=== PATIENT | male | born 1955 | race Caucasian/White ===

== ENCOUNTER 2017-07-09 10:03 | Inpatient (IN) | payer BC ==
[~2017-07-09] VITALS: Ht 177.8 cm; Wt 88.7 kg
[~2017-07-09 10:03] MED LIST: ADVIN25/60 INH; ALBU1AER9 INH; ASPI81TA28 PO; MONT1TAB3 PO; PRLSR20 PO; SIMV40TA2 PO
--- NOTE | 2017-07-09 10:44 | DIAGNOSTIC IMAGING REPORT ---
CHEST ONE VIEW PORTABLE HISTORY: 62 years-old Male CHEST PAIN acute atypical chest pain with near syncopal event COMPARISON: Chest radiograph 12/09/2010 TECHNIQUE: Portable AP view of the chest FINDINGS: Cardiomediastinal and hilar silhouettes are within normal limits. There is no pneumothorax, pleural effusion, focal airspace consolidation or overt pulmonary edema. Bones of the chest appear grossly intact. IMPRESSION: No acute cardiopulmonary process. The above report was generated using voice recognition software. It may contain grammatical, syntax or spelling errors. Electronically signed by: Casey Wood M.D. 07/09/2017 10:43 AM Dictated Date/Time: 07/09/2017 10:42 AM
[2017-07-09] MEDS ORDERED: PANT40TA2 PO (10:51)
--- NOTE | 2017-07-09 10:54 | EMERGENCY ROOM VISIT NOTE ---
History Report prepared by Ren: Osbaldo Adams Under the Supervision of: Dr. Edilson Ellsworth M.D. First contact with patient: 10:11 Chief Complaint: CARDIAC ASSESSMENT Stated Complaint: NEAR SYNCOPE, CHEST PRESSURE, CLAMMY, SWEATING Nursing Triage Summary: Pt states approx 0545 he was sitting at his desk and felt clammy and faint, took 2 aspirin (low dose). Outpatient did an EKG and they said the EKG looked good but they want blood work done. Took [address]. History of Present Illness The patient is a 62 year old male who presents to the Emergency Room with complaints of a near syncopal episode that occurred very suddenly earlier this morning. While he was sitting at his desk at work, he began to feel very lightheaded. His coworker noticed that he looked very pale as well. The patient began to experience diaphoresis, palpitations, and a tightness around his chest that he describes as "someone squeezing" him. He received an ECG at an outpatient clinic and was referred to the ER for further management. Pt denies LOC, headache, fevers, chills, diaphoresis, visual changes, neck pain, tearing pain radiating to the back, uncontrolled hypertension, breathing difficulties, leg swelling, coagulation abnormalities, prolonged travel, recent surgery or immobilization, nausea, vomiting, abdominal pain, melena, hematochezia, urinary symptoms, numbness, weakness, lymphadenopathy, rash, or other complaints. He has a past medical history of a DVT. He notes that he had a cardiac catheterization 6 years ago. Source of History: patient Onset: earlier this morning Position: other (Global) Symptom Intensity: 1 episode Quality: other (Near syncopal episode) Timing: resolved Associated Symptoms: + diaphoresis, + chest pain (pressure) Note: He was experiencing lightheadedness and palpitations. Review of Systems See HPI for pertinent positives and negatives. A total of ten systems were reviewed and were otherwise negative. Past Medical & Surgical Medical Problems: (1) Asthma (2) DVT (deep venous thrombosis) (3) Kidney stones (4) NSTEMI (non-ST elevated myocardial infarction) Surgical Problems: (1) History of knee replacement (2) Prostate cancer Family History He denies any family history of cardiac disease. Social History Smoking Status: Former Smoker Alcohol Use: occasionally Drug Use: none Marital Status: Occupation Status: employed Current/Historical Medications Scheduled Aspirin (Aspirin Ec), 81 MG PO DAILY Fluticasone Prop/Salmeterol (Advair Diskus 250/50 60 Dose), 1 PUFF INH DAILY Pantoprazole (Pantoprazole Sodium), 1 TAB PO DAILY Simvastatin (Zocor), 40 MG PO HS Allergies Coded Allergies: Iodine (Verified Allergy, Unknown, 07/09/17) Sulfa Drugs (Verified Allergy, Unknown, 07/09/17) Physical Exam Vital Signs Date Time Temp Pulse Resp B/P (MAP) Pulse Ox O2 Delivery O2 Flow Rate FiO2 07/09/17 13:32 36.9 75 18 126/84 (98) 96 Room Air 07/09/17 13:00 73 16 123/87 97 07/09/17 12:47 71 137/79 07/09/17 12:04 82 16 113/70 07/09/17 11:55 94 Room Air 07/09/17 11:08 88 07/09/17 11:06 80 18 135/85 94 Room Air 81 129/82 83 138/93 07/09/17 11:00 95 07/09/17 10:10 95 Room Air 07/09/17 10:06 36.6 92 16 117/84 95 Room Air Physical Exam GENERAL: Awake, alert, well-appearing, in no distress HENT: Normocephalic, atraumatic. Oropharynx unremarkable. EYES: Normal conjunctiva. Sclera non-icteric. NECK: Supple. No nuchal rigidity. FROM. No JVD. RESPIRATORY: Clear to auscultation. CARDIAC: Regular rate, normal rhythm. Extremities warm and well perfused. Pulses equal. ABDOMEN: Soft, non-distended. No tenderness to palpation. No rebound or guarding. No masses. RECTAL: Deferred. MUSCULOSKELETAL: Chest examination reveals no tenderness. The back is symmetrical on inspection without obvious abnormality. There is no CVA tenderness to palpation. No joint edema. LOWER EXTREMITIES: Calves are equal size bilaterally and non-tender. No edema. No discoloration. NEURO: Normal sensorium. No sensory or motor deficits noted. SKIN: No rash or jaundice noted. Medical Decision & Procedures ER Provider Diagnostic Interpretation: Radiology results as stated below per my review and radiologist interpretation: CHEST ONE VIEW PORTABLE HISTORY: 62 years-old Male CHEST PAIN acute atypical chest pain with near syncopal event COMPARISON: Chest radiograph 12/09/2010 TECHNIQUE: Portable AP view of the chest FINDINGS: Cardiomediastinal and hilar silhouettes are within normal limits. There is no pneumothorax, pleural effusion, focal airspace consolidation or overt pulmonary edema. Bones of the chest appear grossly intact. IMPRESSION: No acute cardiopulmonary process. The above report was generated using voice recognition software. It may contain grammatical, syntax or spelling errors. Electronically signed by: Casey Wood M.D. 07/09/2017 10:43 AM Dictated Date/Time: 07/09/2017 10:42 AM Laboratory Results 07/09/17 10:20 Red Blood Count 5.25, Mean Corpuscular Volume 89.1, Mean Corpuscular Hemoglobin 31.8, Mean Corpuscular Hemoglobin Concent 35.7, Mean Platelet Volume 10.4, Neutrophils (%) (Auto) 60.8, Lymphocytes (%) (Auto) 28.1, Monocytes (%) (Auto) 9.2, Eosinophils (%) (Auto) 1.1, Basophils (%) (Auto) 0.5, Neutrophils # (Auto) 4.44, Lymphocytes # (Auto) 2.05, Monocytes # (Auto) 0.67, Eosinophils # (Auto) 0.08, Basophils # (Auto) 0.04 07/09/17 10:20 Test 07/09/17 10:18 07/09/17 10:20 07/09/17 10:33 07/09/17 13:14 Urine Color YELLOW Urine Appearance CLEAR (CLEAR) Urine pH 6.0 (4.5-7.5) Urine Specific [place] 1.026 (1.000-1.030) Urine Protein NEG (NEG) Urine Glucose (UA) NEG (NEG) Urine Ketones NEG (NEG) Urine Occult Blood NEG (NEG) Urine Nitrite NEG (NEG) Urine Bilirubin NEG (NEG) Urine Urobilinogen NEG (NEG) Urine Leukocyte Esterase NEG (NEG) White Blood Count 7.30 K/uL (4.8-10.8) Red Blood Count 5.25 M/uL (4.7-6.1) Hemoglobin 16.7 g/dL (14.0-18.0) Hematocrit 46.8 % (42-52) Mean Corpuscular Volume 89.1 fL (80-100) Mean Corpuscular Hemoglobin 31.8 pg (25-34) Mean Corpuscular Hemoglobin Concent 35.7 g/dl (32-36) Platelet Count 176 K/uL (130-400) Mean Platelet Volume 10.4 fL (7.4-10.4) Neutrophils (%) (Auto) 60.8 % Lymphocytes (%) (Auto) 28.1 % Monocytes (%) (Auto) 9.2 % Eosinophils (%) (Auto) 1.1 % Basophils (%) (Auto) 0.5 % Neutrophils # (Auto) 4.44 K/uL (1.4-6.5) Lymphocytes # (Auto) 2.05 K/uL (1.2-3.4) Monocytes # (Auto) 0.67 K/uL (0.11-0.59) Eosinophils # (Auto) 0.08 K/uL (0-0.5) Basophils # (Auto) 0.04 K/uL (0-0.2) RDW Standard Deviation 42.4 fL (36.4-46.3) RDW Coefficient of Variation 13.1 % (11.5-14.5) Immature Granulocyte % (Auto) 0.3 % Immature Granulocyte # (Auto) 0.02 K/uL (0.00-0.02) Prothrombin Time 10.6 SECONDS (9.0-12.0) Prothromb Time International Ratio 1.0 (0.9-1.1) Activated Partial Thromboplast Time 26.7 SECONDS (21.0-31.0) Partial Thromboplastin Ratio 1.0 Anion Gap 6.0 mmol/L (3-11) Est Creatinine Clear Calc Drug Dose 92.4 ml/min Estimated GFR () 101.6 Estimated GFR (Non- 87.7 BUN/Creatinine Ratio 17.2 (10-20) Calcium Level 8.5 mg/dl (8.5-10.1) Total Bilirubin 0.4 mg/dl (0.2-1) Direct Bilirubin < 0.1 mg/dl (0-0.2) Aspartate Amino Transf (AST/SGOT) 22 U/L (15-37) Alanine Aminotransferase (ALT/SGPT) 27 U/L (12-78) Alkaline Phosphatase 94 U/L (45-117) Total Creatine Kinase 95 U/L (39-308) Creatine Kinase MB 1.5 ng/ml (0.5-3.6) Creatine Kinase MB Ratio 1.6 (0-3.0) Total Protein 7.1 gm/dl (6.4-8.2) Albumin 3.3 gm/dl (3.4-5.0) Lipase 169 U/L (73-393) Lyme Disease IgG Antibody NEG (NEG) Lyme Disease IgM Antibody NEG (NEG) Bedside D-Dimer 342 ng/mlFEU (0-450) Laboratory results reviewed by me Medications Administered Medications (Trade) Dose Ordered Sig/Martin Route Start Time Stop Time Status Last Admin Dose Admin Heparin Sodium/ Dextrose 1 ea NOW STAT N/A 07/09/17 11:36 07/09/17 11:38 DC 07/09/17 12:01 1 EA Metoprolol Tartrate (Lopressor Iv) 2.5 mg NOW STAT IV 07/09/17 11:38 07/09/17 11:40 DC 07/09/17 12:47 2.5 MG Heparin Sodium/ Dextrose (Heparin 25,000 Unit/500ml D5W) 25,000 unit STK-MED ONCE .ROUTE 07/09/17 11:51 07/09/17 11:52 DC 07/09/17 11:59 25,000 UNIT Heparin Sodium (Porcine) (Heparin Sq 5000 Unit/0.5ml) 10,000 unit STK-MED ONCE .ROUTE 07/09/17 11:51 07/09/17 11:52 DC 07/09/17 11:57 5,000 UNIT ECG Indication: chest pain Rate (beats per minute): 91 Rhythm: normal sinus Findings: Q waves (Inferior), no acute ischemic change, no ectopy ED Course 1011: The patient was evaluated in room A3. A complete history and physical exam was performed. 1132: I spoke with Dr. Ba of Cardiology at this time. He recommended starting the patient on Heparin, Beta Blockers, and Nitrates. He would like the patient to be evaluated further as an inpatient. He will speak with Dr. Maier about a hospital catheterization procedure. 1136: Ordered Heparin Sodium/Dextrose 1 ea N/A 1140: Upon reexamination, the patient was resting. I discussed the test results and treatment plan with him. I [place] Rob[place] [facility] [place] We discussed the patient's case. The patient will be evaluated by him for further management. 1145: Ordered Nitroglycerin 0.5 inch EXT Medical Decision Triage Nursing notes reviewed. The patient's presentation and history were concerning for near syncope and chest pressure. Etiologies such as vasovagal event, cardiac ischemia, pulmonary embolism, pneumonia, pneumothorax, musculoskeletal, infections, gastrointestinal, aortic dissection,as well as others were entertained. The patient was evaluated. Clinically he was doing well. He had an unremarkable ECG. Blood work is obtained. D-dimer was negative. Chest x-ray as above. Blood work was unremarkable except the patient's troponin was elevated. This is concerning for non-ST elevation MA. I did consult with cardiology. The patient was started on heparin, Lopressor, and Nitropaste. Patient was educated. Internal medicine was consulted. A bedside echo was ordered and was performed in the ED. The patient was admitted for further treatment. Medication Reconcilliation Current Medication List: was personally reviewed by me Blood Pressure Screening Patient's blood pressure: Normal blood pressure Blood pressure disposition: Did not require urgent referral Consults Time Called: 1130 Consulting Physician: Dr. Ba - Cardiology Returned Call: 1132 We discussed the patient's case. He recommended starting the patient on Heparin , Beta Blockers, and Nitrates. He would like him to be evaluated further as an inpatient. He will speak with Dr. Maier about a hospital catheterization. Additional Consults: Time Called: 1138 Consulted Physician: Dr. Robbins - [facility] Returned Call: 1140 Additional Comments: Discussed the patient's case. The patient will be evaluated for further treatment and disposition. Impression Primary Impression: NSTEMI (non-ST elevated myocardial infarction) Additional Impressions: Near syncope Elevated troponin Critical Care I have personally spent greater than 30 minutes of critical care time in the direct management of this patient. This includes bedside care, interpretation of diagnostic studies, and testing, discussion with consultants, patient, and family members, and other required patient management activities. This 30 minutes is in excess of all separately billable procedures. Scribe Attestation The scribe's documentation has been prepared under my direction and personally reviewed by me in its entirety. I confirm that the note above accurately reflects all work, treatment, procedures, and medical decision making performed by me. Departure Information Dispostion Being Evaluated By Hospitalist Referrals No Doctor, Assigned (PCP) Patient Instructions My [facility] Problem Qualifiers
[2017-07-09 10:58] LABS: BASO % 0.5 %; BASO ABS # 0.04 K/uL (0-0.2); COMPLETE YES; EOS % 1.1 %; HEMATOCRIT 46.8 % (42-52); IG% 0.3 %; LYMPH % 28.1 %; LYMPH ABS # 2.05 K/uL (1.2-3.4); MEAN CELL VOLUME 89.1 fL (80-100); MEAN CORPUSCULAR HEMOGLOBIN 31.8 pg (25-34); MEAN CORPUSCULAR HGB CONC 35.7 g/dl (32-36); MEAN PLATELET VOLUME 10.4 fL (7.4-10.4); MONO % 9.2 %; NEUT % 60.8 %; PLATELET COUNT 176 K/uL (130-400); RED BLOOD COUNT 5.25 M/uL (4.7-6.1)
[2017-07-09 11:05] LABS: URINE APPEARANCE CLEAR (CLEAR); URINE BILIRUBIN NEG (NEG); URINE COLOR YELLOW; URINE NITRITE NEG (NEG); URINE SPECIFIC GRAVITY 1.026 (1.000-1.030); UROBILINOGEN NEG (NEG); ZZUR CULT IF INDIC CLEAN CATCH NO
[2017-07-09 11:09] LABS: ALT/SGPT 27 U/L (12-78); AST/SGOT 22 U/L (15-37); BLOOD UREA NITROGEN 16 mg/dl (7-18); BUN/CREATININE RATIO 17.2 (10-20); CALCIUM 8.5 mg/dl (8.5-10.1); CARBON DIOXIDE 24 mmol/L (21-32); CHLORIDE 110 mmol/L (98-107); CREATININE 0.93 mg/dl (0.60-1.40); GLUCOSE 103 mg/dl (70-99); SODIUM 140 mmol/L (136-145)
[2017-07-09 11:11] LABS: PROTHROMBIN TIME (PATIENT) 10.6 SECONDS (9.0-12.0)
[2017-07-09 11:12] LABS: MANUAL MICROSCOPIC REQUIRED? NO; REVIEW REQ? NO
[2017-07-09 11:17] LABS: ALKALINE PHOSPHATASE 94 U/L (45-117); CKMB/CK RATIO 1.6 (0-3.0)
[2017-07-09] MEDS ORDERED: METOPROLOL TARTRATE 1 MG/ML VIAL IV STA (11:38)
[2017-07-09] MEDS ORDERED: ACETAMINOPHEN 325 MG TAB PO PRN (11:45)
[2017-07-09] MEDS ORDERED: ALUMINUM/MAGNESIUM/SIMETH (MAALOX MAX) 30 ML UDC PO PRN (11:45)
[2017-07-09] MEDS ORDERED: NITROGLYCERIN OINT 2% 1GM PACKET EXT ONE (11:45)
[2017-07-09] MEDS ORDERED: NITROGLYCERIN 0.4 MG SL PER TAB CHARGE SL PRN (11:45)
[2017-07-09] MEDS ORDERED: ONDANSETRON INJ 2 MG/ML 2 ML VIAL IV PRN (11:45)
[2017-07-09] MEDS ORDERED: NITROGLYCERIN OINT 2% 1GM PACKET EXT SCH (11:45)
[2017-07-09] MEDS ORDERED: LORAZEPAM 2 MG/ML 1 ML VIAL IV PRN ×2 (11:45)
[2017-07-09] MEDS ORDERED: LORAZEPAM 0.5 MG TAB PO PRN (11:45)
[2017-07-09] MEDS ORDERED: MoRPHine SULFATE 4 MG/ML 1 ML CARP\\VIAL IV PRN (11:45)
[2017-07-09] MEDS ORDERED: POLYETHYLENE (MIRALAX) 17 GM PACK PO PRN (11:45)
[2017-07-09] MEDS ORDERED: MoRPHine SULFATE 2 MG/ML CARP IV PRN (11:45)
[2017-07-09] MEDS ORDERED: HEPARIN SOD 5000 UNIT/0.5 ML CARP ONE (11:51)
[2017-07-09] MEDS ORDERED: HEPARIN 25000 UNIT/500 ML D5W ONE (11:51)
[2017-07-09 11:55] VITALS: O2SAT 94; Ht 177.8 cm; Wt 88.7 kg
[2017-07-09 11:59] LABS: LYME DISEASE AB IGG NEG (NEG); LYME DISEASE AB IGM NEG (NEG)
[2017-07-09] MEDS ORDERED: NURSING VERBAL MED ORDER ONE (12:00)
[2017-07-09] MEDS ORDERED: HEPARIN 25000 UNIT/ D5W 500 ML (PHARMACY PREPARED) IV PRN ×2 (12:30)
[2017-07-09 13:00] VITALS: O2SAT 97
--- NOTE | 2017-07-09 13:23 | History and Physical ---
History & Physical Date & Time of Service: Jul 09, 2017 at 13:15 Chief Complaint: Near Syncope, Chest Pressure, Clammy, Sweating Primary Care Physician: No Doctor, Assigned History of Present Illness this pt was sitting at his office desk this am when he felt ill, he described feeling like he was going to pass out, getting cold and clamey, he felt strong rapid palpitations, his co worker said he looked pale and weak. he has a history of a heart cath after an abnormal stress test in 2009. He currently is without symptoms and has no acute ecg changes. He notes no recent decrease in exertion but does state he is bothered by cold air due to his asthma Past Medical/Surgical History Medical Problems: (1) Asthma Status: Chronic (2) DVT (deep venous thrombosis) Status: Resolved (3) Kidney stones Status: Resolved Surgical Problems: (1) History of knee replacement Status: Resolved Social History Smoking Status: Former Smoker Drug Use: none Marital Status: Housing status: lives alone Occupational Status: employed Immunizations History of Influenza Vaccine: No History of Tetanus Vaccine?: Yes Tetanus Immunization Date: Mar 07, 2006 History of Pneumococcal: Yes Pneumococcal Date: Jun 07, 2006 History of Hepatitis B Vaccine: Unknown Multi-Drug Resistant Organisms History of MDRO: No Allergies Coded Allergies: Iodine (Verified Allergy, Unknown, 07/09/17) Sulfa Drugs (Verified Allergy, Unknown, 07/09/17) Home Medications Scheduled Aspirin (Aspirin Ec), 81 MG PO DAILY Fluticasone Prop/Salmeterol (Advair Diskus 250/50 60 Dose), 1 PUFF INH DAILY Pantoprazole (Pantoprazole Sodium), 1 TAB PO DAILY Simvastatin (Zocor), 40 MG PO HS Review of Systems Constitutional: + chills, + sweats, No fever Respiratory: No cough, No sputum, No wheezing Cardiovascular: + palpitations, + problem reported (felt presyncopal), No chest pain, No orthopnea, No PND, No edema, No claudication Abdomen: No pain, No nausea, No diarrhea Musculoskeletal: No joint pain, No muscle pain, No swelling Neurologic: No memory loss, No paralysis Psychiatric: No depression symptoms, No anhedonism, No anxiety Endocrine: No fatigue, No excessive thirst Integumentary: No rash, No itch Physical Exam Vital Signs Date Time Temp Pulse Resp B/P (MAP) Pulse Ox O2 Delivery O2 Flow Rate FiO2 07/09/17 13:00 73 16 123/87 97 07/09/17 12:47 71 137/79 07/09/17 12:04 82 16 113/70 07/09/17 11:55 94 Room Air 07/09/17 11:08 88 07/09/17 11:06 80 18 135/85 94 Room Air 81 129/82 83 138/93 07/09/17 11:00 95 07/09/17 10:10 95 Room Air 07/09/17 10:06 36.6 92 16 117/84 95 Room Air General Appearance: WD/WN, no apparent distress Head: normocephalic, atraumatic Eyes: PERRL, EOMI Neck: supple, no adenopathy, no JVD Respiratory/Chest: chest non-tender, lungs clear, normal breath sounds Cardiovascular: regular rate, rhythm, no murmur, normal peripheral pulses Abdomen/GI: normal bowel sounds, non tender, soft Back: no CVA tenderness, no muscle spasm Extremities/Musculoskelatal: no pedal edema, normal range of motion Neurologic/Psych: no motor/sensory deficits, oriented x 3 Skin: normal color, warm/dry Diagnostics Laboratory Results Results Past 24 Hours Test 07/09/17 10:18 07/09/17 10:20 07/09/17 10:33 Range/Units Urine Color YELLOW Urine Appearance CLEAR CLEAR Urine pH 6.0 4.5-7.5 Urine Specific [place] 1.026 1.000-1.030 Urine Protein NEG NEG Urine Glucose (UA) NEG NEG Urine Ketones NEG NEG Urine Occult Blood NEG NEG Urine Nitrite NEG NEG Urine Bilirubin NEG NEG Urine Urobilinogen NEG NEG Urine Leukocyte Esterase NEG NEG White Blood Count 7.30 4.8-10.8 K/uL Red Blood Count 5.25 4.7-6.1 M/uL Hemoglobin 16.7 14.0-18.0 g/dL Hematocrit 46.8 42-52 % Mean Corpuscular Volume 89.1 80-100 fL Mean Corpuscular Hemoglobin 31.8 25-34 pg Mean Corpuscular Hemoglobin Concent 35.7 32-36 g/dl Platelet Count 176 130-400 K/uL Mean Platelet Volume 10.4 7.4-10.4 fL Neutrophils (%) (Auto) 60.8 % Lymphocytes (%) (Auto) 28.1 % Monocytes (%) (Auto) 9.2 % Eosinophils (%) (Auto) 1.1 % Basophils (%) (Auto) 0.5 % Neutrophils # (Auto) 4.44 1.4-6.5 K/uL Lymphocytes # (Auto) 2.05 1.2-3.4 K/uL Monocytes # (Auto) 0.67 0.11-0.59 K/uL Eosinophils # (Auto) 0.08 0-0.5 K/uL Basophils # (Auto) 0.04 0-0.2 K/uL RDW Standard Deviation 42.4 36.4-46.3 fL RDW Coefficient of Variation 13.1 11.5-14.5 % Immature Granulocyte % (Auto) 0.3 % Immature Granulocyte # (Auto) 0.02 0.00-0.02 K/uL Prothrombin Time 10.6 9.0-12.0 SECONDS Prothromb Time International Ratio 1.0 0.9-1.1 Activated Partial Thromboplast Time 26.7 21.0-31.0 SECONDS Partial Thromboplastin Ratio 1.0 Sodium Level 140 136-145 mmol/L Potassium Level 4.0 3.5-5.1 mmol/L Chloride Level 110 98-107 mmol/L Carbon Dioxide Level 24 21-32 mmol/L Anion Gap 6.0 3-11 mmol/L Blood Urea Nitrogen 16 7-18 mg/dl Creatinine 0.93 0.60-1.40 mg/dl Est Creatinine Clear Calc Drug Dose 92.4 ml/min Estimated GFR () 101.6 Estimated GFR (Non- 87.7 BUN/Creatinine Ratio 17.2 10-20 Random Glucose 103 70-99 mg/dl Calcium Level 8.5 8.5-10.1 mg/dl Total Bilirubin 0.4 0.2-1 mg/dl Direct Bilirubin < 0.1 0-0.2 mg/dl Aspartate Amino Transf (AST/SGOT) 22 15-37 U/L Alanine Aminotransferase (ALT/SGPT) 27 12-78 U/L Alkaline Phosphatase 94 45-117 U/L Total Creatine Kinase 95 39-308 U/L Creatine Kinase MB 1.5 0.5-3.6 ng/ml Creatine Kinase MB Ratio 1.6 0-3.0 Troponin I 0.079 0-0.045 ng/ml Total Protein 7.1 6.4-8.2 gm/dl Albumin 3.3 3.4-5.0 gm/dl Lipase 169 73-393 U/L Lyme Disease IgG Antibody NEG NEG Lyme Disease IgM Antibody NEG NEG Bedside D-Dimer 342 0-450 ng/mlFEU CXR normal Normal EKG Impression Assessment and Plan 62 M with presyncopal symptoms at rest, palpitations and elevated troponin will repeat troponin and have cardiology consult, was started on heparin by the ER team, given one dose of metoprolol 2.5, will be seen by cardiology and determine if to stress today or complete serial enzymes as long as repeat troponin on admission is not significantly changed continue protonix pt does not typically use inhaler Advanced Directives Existing Living Will: No Existing Power of Water Chaser: No VTE Prophylaxis VTE Risk Assessment Done? Y/N: Yes Risk Level: Moderate Given or contraindicated: Other Anticoagulation
[2017-07-09 13:32] VITALS: BP 126/84; PULSE 75; TEMP 36.9; O2SAT 96
--- NOTE | 2017-07-09 14:01 | ECHOCARDIOGRAM REPORT ---
*NOTICE TO RECEIVING LIBERTARIAN AGENCY This information is strictly Confidential and protected under [place] law. [place] law prohibits you from making any further disclosure of this information unless further disclosure is expressly permitted by the written consent of the person to whom it pertains or is authorized by law. A general authorization for the release of medical or other information is not sufficient for this purpose. Hospital accepts no responsibility if the information is made available to any other person, INCLUDING THE PATIENT. Interpretation Summary * Conclusions -- * Left ventricular systolic function is normal. * No regional wall motion abnormalities noted. * Ejection Fraction = 60-65%. * There is mild concentric left ventricular hypertrophy. * Grade I diastolic dysfunction, (abnormal relaxation pattern). * There is mild mitral regurgitation. Procedure Details * A complete two-dimensional transthoracic echocardiogram was performed (2D, M-mode, Doppler and color flow Doppler). * A contrast injection of Definity was performed to improve assessment of LV function. * Contrast was injected into an intravenous site in the right arm. * One vial of Definity ultrasound contrast was diluted in normal saline to a total volume of 10 ml. A total of '2' ml of solution was administered during imaging. * Lot # [id number] of Definity utilized for procedure. * Expiration date AUG 09. * The attending nurse who injected the contrast agent was TANIA GE RN. Left Ventricle * The left ventricle is normal in size. * There is mild concentric left ventricular hypertrophy. * Left ventricular systolic function is normal. * Ejection Fraction = 60-65%. * No regional wall motion abnormalities noted. Right Ventricle * The right ventricle is grossly normal size. * The right ventricular systolic function is normal as assessed by tricuspid annular plane systolic excursion (TAPSE) (normal >1.5 cm). Atria * Borderline left atrial enlargement. * Right atrial size is normal. * No ASD detected; PFO is not assessed. Mitral Valve * The mitral valve is grossly normal. * There is no mitral valve stenosis. * There is mild mitral regurgitation. Tricuspid Valve * The tricuspid valve is not well visualized, but is grossly normal. * There is no tricuspid stenosis. * There is trace tricuspid regurgitation. Aortic Valve * The aortic valve is normal in structure and function. * Aortic stenosis is absent. * No aortic regurgitation is present. Pulmonic Valve * The pulmonary valve is not well seen, but the Doppler examination is normal without significant regurgitation or stenosis. Great Vessels * The aortic root is normal size. * The pulmonary is not well visualized. Pericardium/Pleural * There is no pericardial effusion. Great Vessels * Normal inferior vena cava size and collapsability with sniff indicates a normal right atrial pressure of 3 mmHg Left Ventricular Diastolic Function * Grade I diastolic dysfunction, (abnormal relaxation pattern). MMode 2D Measurements and Calculations IVSd 1.1 cm IVSs 1.7 cm LVIDd 4.3 cm LVIDs 3.5 cm LVPWd 1.2 cm LVPWs 1.3 cm IVS/LVPW 0.93 FS 18.2 % EDV(Teich) 83.2 ml ESV(Teich) 51.6 ml EF(Teich) 38.0 % EDV(cubed) 79.7 ml ESV(cubed) 43.7 ml EF(cubed) 45.2 % % IVS thick 56.3 % % LVPW thick 13.0 % LV mass(C)d 173.7 grams LV mass(C)dI 84.1 grams/m\S\2 LV mass(C)s 203.2 grams LV mass(C)sI 98.4 grams/m\S\2 SV(Teich) 31.6 ml SI(Teich) 15.3 ml/m\S\2 SV(cubed) 36.0 ml SI(cubed) 17.5 ml/m\S\2 Ao root diam 3.5 cm Ao root area 9.8 cm\S\2 LA dimension 3.9 cm LA/Ao 1.1 LVOT diam 2.1 cm LVOT area 3.5 cm\S\2 LVAd ap4 29.6 cm\S\2 LVLd ap4 7.1 cm EDV(MOD-sp4) 98.9 ml EDV(sp4-el) 105.5 ml LVAs ap4 19.9 cm\S\2 LVLs ap4 6.4 cm ESV(MOD-sp4) 53.0 ml ESV(sp4-el) 52.7 ml EF(MOD-sp4) 46.4 % EF(sp4-el) 50.1 % LVAd ap2 31.3 cm\S\2 LVLd ap2 8.0 cm EDV(MOD-sp2) 99.0 ml EDV(sp2-el) 103.8 ml LVAs ap2 20.2 cm\S\2 LVLs ap2 6.6 cm ESV(MOD-sp2) 50.4 ml ESV(sp2-el) 52.2 ml EF(MOD-sp2) 49.1 % EF(sp2-el) 49.8 % LVLd %diff 11.8 % EDV(MOD-bp) 103.1 ml LVLs %diff 4.0 % ESV(MOD-bp) 51.9 ml EF(MOD-bp) 49.7 % SV(MOD-sp4) 45.9 ml SI(MOD-sp4) 22.2 ml/m\S\2 SV(MOD-sp2) 48.6 ml SI(MOD-sp2) 23.5 ml/m\S\2 SV(MOD-bp) 51.2 ml SI(MOD-bp) 24.8 ml/m\S\2 SV(sp4-el) 52.9 ml SI(sp4-el) 25.6 ml/m\S\2 SV(sp2-el) 51.7 ml SI(sp2-el) 25.0 ml/m\S\2 Doppler Measurements and Calculations MV E max brandon 56.1 cm/sec MV A max brandon 79.3 cm/sec MV E/A 0.71 MV P1/2t max brandon 60.4 cm/sec MV P1/2t 76.8 msec MVA(P1/2t) 2.9 cm\S\2 MV dec slope 230.4 cm/sec\S\2 MV dec time 0.19 sec Ao V2 max 101.4 cm/sec Ao max PG 4.1 mmHg Ao max PG (full) 0.67 mmHg ALEJANDRO(V,A) 3.2 cm\S\2 ALEJANDRO(V,D) 3.2 cm\S\2 LV V1 max PG 3.4 mmHg LV V1 max 92.7 cm/sec
--- NOTE | 2017-07-09 15:46 | Cardiology Consultation ---
Cardiology Consultation Date of Consultation: Jul 09, 2017. Attending Physician: Dr. Robbins Reason for Consultation: Near-syncope, chest tightness, elevated troponin Pt evaluation today including: conversation w/ patient, physical exam, chart review, lab review History of Present Illness 62 yo M presented to ED this morning after a short episode of near syncope. He states that after arriving at work while sitting in chair drinking coffee, he felt a sudden onset of feeling lightheaded, as if he were going to pass out. He did not lose consciousness. This episode lasted 30-40 seconds. He also notes feeling clammy and diaphoretic and some squeezing of his anterior chest wall of his ribs, bilaterally, as if someone were giving him a tight hug. These symptoms lasted 3-4 minutes total. He used some breathing exercises, rested his head on his desk, and gradually felt himself again. He reports he takes a daily baby aspirin, and took 2 pills 1-2 hours after onset of symptoms. He presented himself to a walk-in clinic, where an EKG was performed. Patient states the EKG looked "okay" but he was still advised to present to the ED. Since the initial 3 -4 min episode he has been asymptomatic. He reports no PND, orthopnea, peripheral edema, dyspnea. He denies any recent illness, head cold, or change to bowel habits. He does report 2 previous similar presentations. 6 years ago had near-syncope, stress echo performed which he tolerated well but had EKG changes that required cardiac cath. Cath at [place] showed minimal blockage 12 years ago, had episode of chest tightness, came to ED, was worked up and was told it was related to stress. 20 years ago had 1st episode of sudden syncope, remembers being in ICU and having thorough workup but does not recall if anything abnormal was found Past Medical/Surgical History Syncopal episode: 20 years ago, was walking down stairs, and suddenly passed out ; had thorough cardiac workup at that time, does not recall what was found at that time. Prostate Cancer: had surgery to remove, now in remission Asthma: has difficulty in cold weather. Meant to be taking advair, singulair, and "another" inhaler but does not regularly take them and really only needs them when very cold out. HLD: states this is well controlled with tablet. 15 pack year smoking hx Hypotension Knee surgery: did well but developed DVT in leg, was placed on coumadin and lovenox for a time. Social History Smoking Status: Former Smoker History of Alcohol Use: Yes (beer 1 to 2 x week) Review of Systems Constitutional: No fever, No chills, No sweats, No weight loss, No weakness, No fatigue, No problem reported Respiratory: No cough, No sputum, No wheezing, No shortness of breath, No dyspnea on exertion, No dyspnea at rest, No hemoptysis, No problem reported Cardiac: No chest pain, No orthopnea, No PND, No edema, No claudication, No palpitations, No problem reported Abdomen: No pain, No nausea, No vomiting, No diarrhea, No constipation, No GI bleeding, No problem reported Male : No dysuria, No urinary frequency, No incontinence, No nocturia more than once/night, No slowing stream, No hematuria, No sexual dysfunction, No problem reported Neurologic: No memory loss, No paralysis, No weakness, No numbness/tingling, No vertigo, No balance problems, No problem reported Heme: + clotting problems (previous clot in left leg) All Other Systems: Reviewed and Negative Allergies Coded Allergies: Iodine (Verified Allergy, Unknown, 07/09/17) Sulfa Drugs (Verified Allergy, Unknown, 07/09/17) Medications Current Inpatient Medications Medications (Trade) Dose Ordered Sig/Martin Route Start Time Stop Time Status Last Admin Dose Admin Pantoprazole Sodium (Protonix Tab) 40 mg DAILY PO 07/10/17 09:00 08/09/17 08:59 Simvastatin (Zocor Tab) 40 mg HS PO 07/09/17 21:00 08/08/17 20:59 Acetaminophen (Tylenol Tab) 650 mg Q4H PRN PO 07/09/17 11:45 08/08/17 11:44 Al Hydrox/Mg Hydrox/Simethicone (Maalox Max Susp) 15 ml Q4H PRN PO 07/09/17 11:45 08/08/17 11:44 Ondansetron HCl (Zofran Inj) 4 mg Q6H PRN IV 07/09/17 11:45 08/08/17 11:44 Nitroglycerin (Nitrostat Tab) 0.4 mg UD PRN SL 07/09/17 11:45 08/08/17 11:44 Aspirin (Ecotrin Tab) 325 mg QAM PO 07/10/17 09:00 08/09/17 08:59 Polyethylene (Miralax Powder Packet) 17 gm DAILY PRN PO 07/09/17 11:45 08/08/17 11:44 Lorazepam (Ativan Inj) 0.5 mg Q4H PRN IV 07/09/17 11:45 08/08/17 11:44 Lorazepam (Ativan Inj) 1 mg Q4H PRN IV 07/09/17 11:45 08/08/17 11:44 Lorazepam (Ativan Tab) 0.5 mg Q6 PRN PO 07/09/17 11:45 08/08/17 11:44 Morphine Sulfate (MoRPHine SULFATE INJ) 4 mg Q4H PRN IV 07/09/17 11:45 07/23/17 11:44 Morphine Sulfate (MoRPHine SULFATE INJ) 2 mg Q4H PRN IV 07/09/17 11:45 07/23/17 11:44 Heparin Sodium (Porcine) 33559 unit/Dextrose 500 ml @ 29 mls/hr [id number] PRN IV 07/09/17 12:30 08/08/17 12:29 Metoprolol Tartrate (Lopressor Tab) 12.5 mg BID PO 07/09/17 21:00 08/08/17 20:59 Physical Exam Vital Signs Past 12 Hours Date Time Temp Pulse Resp B/P (MAP) Pulse Ox O2 Delivery O2 Flow Rate FiO2 07/09/17 13:32 36.9 75 18 126/84 (98) 96 Room Air 07/09/17 13:00 73 16 123/87 97 07/09/17 12:47 71 137/79 07/09/17 12:04 82 16 113/70 07/09/17 11:55 94 Room Air 07/09/17 11:08 88 07/09/17 11:06 80 18 135/85 94 Room Air 81 129/82 83 138/93 07/09/17 11:00 95 07/09/17 10:10 95 Room Air 07/09/17 10:06 36.6 92 16 117/84 95 Room Air Constitutional: General Apperance: heathly-appearing, well-nourished, well-developed Level of Distress: NAD Ambulation: ambulating normally Psychiatric: Mental Status: active & alert, normal mood, normal affect Orientation: oriented except where noted Head: normocephalic, atraumatic ENMT: normal ENT inspection, hearing grossly normal Neck: supple, trachea midline, no masses Lungs: Respiratory effort: no dyspnea, good air movement Auscultation: breath sounds normal, CTA except as noted, no wheezing, no rales/crackles, no rhonchi Cardiovascular: Apical Impulse: not displaced Heart Auscultation: RRR, normal S1, normal S2, no gallops, II/ ARTI Peripheral Pulses: Bruits: none appreciated Carotid Pulse: normal on the left, normal on the right Radial Pulse: normal on the left, normal on the right Dorsalis Pedis Pulse: normal on the left, normal on the right Musculoskeletal: normal Extremities: no cyanosis, no edema, no varicosities, no clubbing, no ulcers Neurologic: Gait & Station: normal gait Cranial Nerves: grossly intact Sensation: grossly intact Data Laboratory Results: Last 24 Hours Test 07/09/17 10:18 07/09/17 10:20 07/09/17 10:33 07/09/17 13:14 Urine Color YELLOW Urine Appearance CLEAR Urine pH 6.0 Urine Specific [place] 1.026 Urine Protein NEG Urine Glucose (UA) NEG Urine Ketones NEG Urine Occult Blood NEG Urine Nitrite NEG Urine Bilirubin NEG Urine Urobilinogen NEG Urine Leukocyte Esterase NEG White Blood Count 7.30 K/uL Red Blood Count 5.25 M/uL Hemoglobin 16.7 g/dL Hematocrit 46.8 % Mean Corpuscular Volume 89.1 fL Mean Corpuscular Hemoglobin 31.8 pg Mean Corpuscular Hemoglobin Concent 35.7 g/dl Platelet Count 176 K/uL Mean Platelet Volume 10.4 fL Neutrophils (%) (Auto) 60.8 % Lymphocytes (%) (Auto) 28.1 % Monocytes (%) (Auto) 9.2 % Eosinophils (%) (Auto) 1.1 % Basophils (%) (Auto) 0.5 % Neutrophils # (Auto) 4.44 K/uL Lymphocytes # (Auto) 2.05 K/uL Monocytes # (Auto) 0.67 K/uL Eosinophils # (Auto) 0.08 K/uL Basophils # (Auto) 0.04 K/uL RDW Standard Deviation 42.4 fL RDW Coefficient of Variation 13.1 % Immature Granulocyte % (Auto) 0.3 % Immature Granulocyte # (Auto) 0.02 K/uL Prothrombin Time 10.6 SECONDS Prothromb Time International Ratio 1.0 Activated Partial Thromboplast Time 26.7 SECONDS Partial Thromboplastin Ratio 1.0 Sodium Level 140 mmol/L Potassium Level 4.0 mmol/L Chloride Level 110 mmol/L Carbon Dioxide Level 24 mmol/L Anion Gap 6.0 mmol/L Blood Urea Nitrogen 16 mg/dl Creatinine 0.93 mg/dl Est Creatinine Clear Calc Drug Dose 92.4 ml/min Estimated GFR () 101.6 Estimated GFR (Non- 87.7 BUN/Creatinine Ratio 17.2 Random Glucose 103 mg/dl Calcium Level 8.5 mg/dl Total Bilirubin 0.4 mg/dl Direct Bilirubin < 0.1 mg/dl Aspartate Amino Transf (AST/SGOT) 22 U/L Alanine Aminotransferase (ALT/SGPT) 27 U/L Alkaline Phosphatase 94 U/L Total Creatine Kinase 95 U/L Creatine Kinase MB 1.5 ng/ml Creatine Kinase MB Ratio 1.6 Troponin I 0.079 ng/ml Total Protein 7.1 gm/dl Albumin 3.3 gm/dl Lipase 169 U/L Lyme Disease IgG Antibody NEG Lyme Disease IgM Antibody NEG Bedside D-Dimer 342 ng/mlFEU Imaging: EKG: Telemetry reviewed: Assessment & Plan 62 yo M with near syncopal episode, currently asymptomatic Near-syncope, chest tightness (resolved), elevated troponin level - Continue IV heparin drip - Continue metoprolol 12.5 BID - Continue simvastatin 40 OD - Recommend stress echo today Asthma - continue home meds prn Resident Involvement: Resident Care Provided Care Provided: Adult Hospital Medicine
--- NOTE | 2017-07-09 16:20 | Discharge Instructions ---
Discharge Instructions Date of Service Jul 09, 2017. Admission Reason for Admission: Nstemi Discharge Discharge Diagnosis / Problem: no cardiac ischemia, elevated troponin Discharge Goals Goal(s): Diagnostic testing Activity Recommendations Activity Limitations: resume your previous activity . Current Hospital Diet Patient's current hospital diet: Discharge Diet Recommended Diet: Regular Diet Pending Studies Studies pending at discharge: no Medical Emergencies . Who to Call and When: Medical Emergencies: If at any time you feel your situation is an emergency, please call 911 immediately. . Non-Emergent Contact Non-Emergency issues call your: Primary Care Provider Call Non-Emergent contact if: temperature is above 101, your pain is unusual for you . . "Provider Documentation" section prepared by Sean Robbins. . VTE Core Measure Inpt VTE Proph given/why not?: Other Anticoagulation
[2017-07-09 17:05] VITALS: BP 126/84; PULSE 75; TEMP 36.9; O2SAT 96
--- NOTE | 2017-07-09 17:14 | Discharge Summary ---
Discharge Summary Date of Service Jul 09, 2017. Discharge Summary Admission Date: Jul 09, 2017 at 11:45 Discharge Date: Jul 09, 2017 Discharge Disposition: Home Principal Diagnosis: non cardiac symptoms, negative stress test, elevated troponin Immunizations: Have You Had Influenza Vaccine: No History of Tetanus Vaccine?: Yes Tetanus Immunization Date: Mar 07, 2006 History of Pneumococcal: Yes Pneumococcal Date: Jun 07, 2006 History of Hepatitis B Vaccine: Unknown Procedures: pt had an excercise stress supervised by Dr Ba and was negative for reproducible symptoms Medication Reconciliation Continued Medications: Aspirin (Aspirin Ec) 81 Mg Tab 81 MG PO DAILY Fluticasone Prop/Salmeterol (Advair Diskus 250/50 60 Dose) 1 Ea Aerp 1 PUFF INH DAILY, INHALER Pantoprazole (Pantoprazole Sodium) 40 Mg Tab 1 TAB PO DAILY Simvastatin (Zocor) 40 Mg Tab 40 MG PO HS Discharge Exam Review of Systems: Constitutional: No fever, No chills Respiratory: No cough, No sputum Cardiovascular: No chest pain, No orthopnea Abdomen: No pain, No nausea, No vomiting Physical Exam: General Appearance: WD/WN, no apparent distress Neck: supple, no JVD Respiratory/Chest: chest non-tender, lungs clear, normal breath sounds Cardiovascular: regular rate, rhythm, no edema, no murmur Abdomen / GI: normal bowel sounds, non tender, soft Neurologic/Psychiatric: alert, oriented x 3 Hospital Course 62 M with presyncopal symptoms at rest, palpitations and elevated troponin elevated repeat troponin given one dose of metoprolol 2.5, and was on a heparin gtt for a short time I did personally speak to Cardiology and they performed excercise stress test which was negative, believe explanation was that pt has LVH and maybe had a arrhythmia. The pt was offered B iliana but he did decline, he did have holter monitor in the past. He states he will speak to PCP continue protonix pt does not typically use inhaler Total Time Spent: Greater than 30 minutes This includes examination of the patient, discharge planning, medication reconciliation, and communication with other providers. Discharge Instructions Please refer to the electronic Patient Visit Report (Discharge Instructions) for additional information.
[2017-07-09] MEDS ORDERED: EXCUSE EXT (17:16)
[2017-07-09] MEDS ORDERED: SIMVASTATIN 40 MG TAB PO SCH (21:00)
[2017-07-09] MEDS ORDERED: METOPROLOL TARTRATE 25 MG TAB PO SCH (21:00)
[2017-07-10] MEDS ORDERED: ASPIRIN 325 MG ECTAB PO SCH (09:00)
[2017-07-10] MEDS ORDERED: PANTOprazole SOD 40 MG TAB PO SCH (09:00)
[2017-07-10] MEDS ORDERED: FLUTICASONE/SALMETEROL 250/50 (ADVAIR) 14 PUFF/1 INHALER INH SCH (09:00)
--- NOTE | 2017-07-13 09:27 | EXERCISE STRESS ECHO ---
*NOTICE TO RECEIVING [employer] This information is strictly Confidential and protected under [place] law. [place] law prohibits you from making any further disclosure of this information unless further disclosure is expressly permitted by the written consent of the person to whom it pertains or is authorized by law. A general authorization for the release of medical or other information is not sufficient for this purpose. Hospital accepts no responsibility if the information is made available to any other person, INCLUDING THE PATIENT. Interpretation Summary * Name: ALONDRA FORD SR Study Date: 07/09/2017 04:54 PM BP: 125/84 mmHg * Patient Location: .[id number]\S\1 HR: 68 * : 1955 (M/d/yyyy) Gender: Male Height: 70 in * Age: 62 yrs Ethnicity: CA Weight: 195 lb * Ordering Physician: Que Ba * Referring Physician: Self, Referred * Performed By: Marta Davenport RCS * * Reason For Study: ELEVATED TROPONIN / CHEST PAIN * BSA: 2.1 m2 * -- Conclusions -- * 1. Normal stress echocardiogram at 9.7 METS and a peak heart rate of 94% predicted maximum. * 2. No exercise-induced chest pain. * 3. No EKG changes. * 4. Baseline echocardiogram notes normal left ventricular systolic function. Procedure Details * ECHOEX, CPT #[id number] Left Ventricle * The left ventricular ejection fraction increases normally with stress. The left ventricular end-systolic cavity size reduces post-stress (normal response). The left ventricular wall motion with stress is normal. * Resting wall motion: Normal. Stress wall motion: Appropriate increase in Left ventricular systolic function and decrease in cavity size. No stress induced segmental wall motion abnormalities. Stress Parameters * The stress portion of this study was personally supervised by the undersigned interpreting physician. * Rest heart rate was '68' BPM. * Rest blood pressure was '125/84' * Maximum heart rate achieved was 150 bpm. * Maximum heart rate was 94 % of maximum age-predicted heart rate. * Maximum blood pressure was '178/67' * Total exercise time was '07:48' * Maximum exercise MET level achieved was '9.70' METS * Maximum treadmill speed was '3.40' miles per hour. * Maximum treadmill elevation was '14.00'% grade.
== END 2017-07-09 18:29 | disposition home or self-care (01) | DRG 312 ==
LOC: C.EDB 10:05 → C.2T 11:45 → ENRESERV 12:21
PROVIDERS: ADMIT Internal Medicine; ATTEND Internal Medicine
DX: R55 Syncope and collapse (principal); R00.2 Palpitations; R07.89 Other chest pain; E78.5 Hyperlipidemia, unspecified; J45.909 Unspecified asthma, uncomplicated; Z79.82 Long term (current) use of aspirin; Z79.899 Other long term (current) drug therapy; Z86.718 Personal history of other venous thrombosis and embolism; Z87.891 Personal history of nicotine dependence; Z88.2 Allergy status to sulfonamides

== ENCOUNTER 2021-08-01 14:29 | Inpatient (IN) ==
[2021-08-01] MEDS ORDERED: BENZONATATE 100 MG CAPSULE PO ONE (15:45)
[2021-08-01] MEDS ORDERED: D5W AND 1/2NSS 1,000 ML IV SCH (15:45)
[2021-08-01] MEDS ORDERED: diphenhydrAMINE 50 MG/ML VIAL IV PRN (15:58)
[2021-08-01] MEDS ORDERED: EPINEPHrine INJ 1 MG/ML AMP IM PRN (15:58)
[2021-08-01] MEDS ORDERED: ACETAMINOPHEN 325 MG TAB PO PRN (15:58)
[2021-08-01] MEDS ORDERED: STAT IV STA (15:58)
[2021-08-01] MEDS ORDERED: ONDANSETRON INJ 2 MG/ML 2 ML VIAL IV PRN ×2 (15:58→22:58)
[2021-08-01] MEDS ORDERED: methylPREDNISolone 125 MG/2 ML VIAL IV PRN (15:58)
--- NOTE | 2021-08-01 15:58 | Emergency Department Note ---
History of Present Illness General Chief complaint: Illness Stated complaint: COVID Time Seen by Provider: 08/01/21 15:11 Source: patient History of Present Illness Provider complaint: Generalized weakness Onset (ago): day(s) Location: upper extremity, lower extremity, left and right Severity: moderate Pain Consistency: + constant Quality: + other (Feels weak all over) Relieved By: + none Exacerbated By: + other (Walking) Associated symptoms: + chest pain, + cough, + fever/chills, + malaise, + shortness of breath and + weakness; no headaches or no nausea/vomiting This is a 66-year-old male recently diagnosed with COVID-19 presenting with generalized weakness over the past several days. He states that when he left the emergency department 4 days ago he had no appetite and so has not eaten anything for the past 4 days. He has been subsisting mostly on Gatorade. He states he is not nauseous or vomiting but states he has no appetite. He subsequently developed generalized weakness. He states that when he tries to get up he is weak and lightheaded. He has not fallen but feels unsteady. He has had a persistent cough. He states that he has chest soreness only when he coughs. He denies any diarrhea, loss of taste or smell. He has no abdominal pain. He is occasionally short of breath. He is not vaccinated for COVID-19. Home Medications Medication Instructions Recorded Confirmed Type simvastatin 40 mg tablet 40 mg PO DAILY 02/19/19 08/01/21 History aspirin 81 mg tablet,delayed 81 mg PO DAILY 08/01/19 08/01/21 History release fluticasone 250 mcg-salmeterol 50 1 inh INHALATION BID 08/01/19 08/01/21 History mcg/dose blistr powdr for inhalation (Advair Diskus) albuterol sulfate 90 mcg/actuation 2 puffs INH 6XD PRN #6.7 gm 07/28/21 08/01/21 Rx aerosol inhaler benzonatate 100 mg capsule 100 mg PO TID PRN #15 cap 07/28/21 08/01/21 Rx Allergies Allergy/AdvReac Type Severity Reaction Status Date / Time iodine Allergy Unknown Unknown Verified 08/01/21 16:52 Sulfa (Sulfonamide Allergy Unknown Unknown Verified 08/01/21 16:52 Antibiotics) Milk Containing Products AdvReac Gastrointestinal Unverified 08/01/21 16:52 Upset Past Med/Surg History Medical History (Updated 08/01/21 @ 22:05 by Sean Oconnell MD) Asthma Contusion of elbow, right Depression Diverticulitis DVT (deep venous thrombosis) Dyslipidemia NSTEMI (non-ST elevated myocardial infarction) Prostate cancer Renal cyst, left Surgical History History of carpal tunnel release Family History Other Family history non-contributory Social History Smoking Status: Never smoker Preferred Language: Indian marital status: Single Current Living Situation: Alone current occupational status: employed Feels Safe at Home: Yes Review of Systems See HPI for pertinent positives & negatives. and A total of 10 systems reviewed and were otherwise negative Physical Exam Vital Signs Vital Signs - 24 hr 08/01/21 14:34 08/01/21 19:20 08/01/21 19:36 Temperature 36.8 C Temperature Source Temporal Artery Scan Pulse Rate 98 H 94 H Pulse Rhythm Regular Regular Pulse Strength Normal Respiratory Rate 20 20 Respiratory Effort / Characteristics Non-Labored Spontaneous Respiratory Depth Normal Respiratory Pattern Regular Blood Pressure 154/73 H Blood Pressure Mean 100 Blood Pressure Position Sitting Pulse Oximetry 90 88 L 90 Oxygen Delivery Method Room Air Room Air Nasal Cannula Oxygen Flow Rate 2 Sepsis Recent Fever Within 48 Hours No Sepsis New/Unexplained Change in Mental Status N/A Sepsis Action Taken by Nursing No Action Required Constitutional: Vital signs reviewed. Eyes: Pupils are equal round reactive to light. Conjunctiva are noninjected. ENT: Pharynx is clear without erythema or exudate. Mucous membranes are dry. Neck supple without meningeal signs. Respiratory: Clear to auscultation bilaterally. Breath sounds are equal bila terally. Cardiovascular: Regular rate and rhythm. No rubs or gallops. GI: Soft, nondistended and nontender. Bowel sounds are present. Musculoskeletal: No peripheral edema. No lower extremity tenderness. Integumentary: No cyanosis. or jaundice. Neurological: The patient is awake and alert. No focal deficits. Psychiatric: Normal affect. Not anxious appearing. Course Administered Medications Discontinued Medications Dexamethasone Sodium Phosphate (DexamethasonePf 10 Mg/Ml Vial) 6 mg IV NOW ONE Stop: 08/01/21 19:29 Last Admin: 08/01/21 19:42 Dose: 6 mg Documented by: [id number] Casirivimab 1,200 mg/ Sodium (Chloride) 110 mls @ 310 mls/hr IV NOW ONE; Protocol Stop: 08/01/21 16:34 Last Admin: 08/01/21 19:42 Dose: Not Given Documented by: [id number] Miscellaneous (Stat Iv) 1 ea N/A NOW STA Stop: 08/01/21 15:59 Last Admin: 08/01/21 19:42 Dose: Not Given Documented by: [id number] Sodium Chloride (Sodium Chloride 0.9% 10ml Flush) 30 ml IV ONCE ONE Stop: 08/01/21 16:29 Last Admin: 08/01/21 19:42 Dose: Not Given Documented by: [id number] Medical Decision Making Differential Diagnosis Dehydration, malnutrition, metabolic derangement, pneumonia, COVID-19 Medical Records Attestation: I reviewed the patient's medical records. I did perform a limited focused review of portions of the patient's old chart on the electronic medical record. The patient was seen here July 28 for cough and chest pain. He was diagnosed with COVID-19 and declined monoclonal antibodies. Home Medications Current Medication List: was personally reviewed by me Laboratory Data Attestation: I reviewed the patient's lab results. Result diagrams: 08/01/21 19:10 08/01/21 19:10 Lab Results 08/01/21 08/01/21 Range/Units 19:10 19:10 WBC 3.62 L (4.8-10.8) K/uL RBC 5.58 (4.7-6.1) M/uL Hgb 17.9 (14.0-18.0) g/dL Hct 51.1 (42-52) % MCV 91.6 (80-100) fL MCH 32.1 (25-34) pg MCHC 35.0 (32-36) g/dL RDW Std Deviation 43.8 (36.4-46.3) fL RDW Coeff of Charity 13.0 (11.5-14.5) % Plt Count 68 L (130-400) K/uL MPV 11.5 H (7.4-10.4) fL Immature Gran % (Auto) 0.3 % Neut % (Auto) 58.5 % Lymph % (Auto) 30.4 % [place] % (Auto) 10.5 % Eos % (Auto) 0.0 % Baso % (Auto) 0.3 % Neut # (Auto) 2.12 (1.4-6.5) K/uL Lymph # (Auto) 1.10 L (1.2-3.4) K/uL [place] # (Auto) 0.38 (0.11-0.59) K/uL Eos # (Auto) 0.00 (0-0.5) K/uL Baso # (Auto) 0.01 (0-0.2) K/uL Immature Gran # (Auto) 0.01 (0.00-0.02) K/uL Platelet Estimate Decreased L (Normal) Sodium 140 (136-145) mmol/L Potassium 3.9 (3.5-5.1) mmol/L Chloride 108 H (98-107) mmol/L Carbon Dioxide 22 (21-32) mmol/L Anion Gap 9.0 (3-11) BUN 26 H (7-18) mg/dl Creatinine 1.20 (0.6-1.4) mg/dl Est Cr Clr Drug Dosing 62.5 ml/min Est GFR ( Amer) 72.6 ml/min Est GFR (Non-Af Amer) 62.6 ml/min BUN/Creatinine Ratio 21.3 H (10-20) Glucose 119 H (70-99) mg/dl Calcium 8.3 L (8.5-10.1) mg/dl Total Bilirubin 0.5 (0.2-1) mg/dl AST 83 H (15-37) U/L ALT 50 (12-78) Alkaline Phosphatase 56 (45-117) U/L C-Reactive Protein 2.84 H (0-0.29) mg/dl Total Protein 6.8 (6.4-8.2) gm/dl Albumin 2.9 L (3.4-5.0) gm/dl Globulin 3.9 (2.5-4.0) gm/dl Albumin/Globulin Ratio 0.7 L (0.9-2) Imaging Data Radiologist's Impression: Chest X-Ray 12/10/21 15:45 XR chest 2V PA/lateral CLINICAL HISTORY: Covid positive. Difficulty breathing. History of cough. COMPARISON STUDY: 07/28/2021 TECHNIQUE: 2 views of the chest FINDINGS: Frontal and lateral radiographs of the chest demonstrate the cardiomediastinal silhouette to be within normal limits. Compared to the previous examination, there are now patchy interstitial and alveolar opacities present bilaterally. The findings are most characteristic of a viral type pneumonitis and early Covid 19 pneumonia. There is no evidence for effusion bilaterally. There is no evidence for vascular congestion. There is no acute osseous pathology. IMPRESSION: Compared to the previous examination, there are now patchy interstitial and alveolar opacities bilaterally characteristic of a viral type pneumonitis and early Covid 19 pneumonia. ACT 112: Negative or not required by law. Electronically signed by: Magan Grant M.D. 08/01/2021 4:31 PM ECG Data Attestation: I personally reviewed and interpreted this ECG as follows: Indication: + SOB/dyspnea and + weakness Rate (beats per minute): 102 Rhythm: + sinus tachycardia ECG [place]: + Normal ECG ST segments: no ST elevation ECG Findings: no PVCs MDM Narrative I did evaluate the patient as noted above. Unfortunately a bed was not available upon my evaluation and he had to be evaluated in a subwaiting room with other people present. He was agreeable to this. We are currently at a time of very high acuity and volume in our hospital in the emergency department. The patient is presenting with generalized weakness with some shortness of breath. He does have COVID-19 and had symptoms starting on the fifth of this month. He is not vaccinated. Initially has pulse ox was recorded as normal in triage. I did discuss monoclonal antibodies with him and after discussion of risks and benefits he did agree to it. I did order it for him but then he changed his mind. I did cancel the order. He was also found to be noted to be hypoxemic once he got into a room. He was placed on supplemental oxygen via nasal cannula. His O2 saturation was 86% on room air and went up to to 94% on 2 L. IV access established. I did place an order for continuous cardiac monitoring. The monitor showed normal sinus rhythm at a rate of 95 bpm. I did order and personally review the patient's 12-lead EKG as described above. He has no acute ischemic changes. I did order and personally reviewed the images of the patient's chest x-ray as described above. He does appear to have multifocal pneumonia. I did order and review the patient's blood work as noted in the electronic medical record. He has lymphopenia consistent with COVID-19 infection. He is not anemic. His platelet count is 68. This is new for him. Electrolytes demonstrate a chloride of 108 and a calcium of 8.3 but are otherwise unremarkable. C-reactive protein is 2.8. The patient was given something to drink here in the form of Ensure and he states after drinking and he felt much better. Due to his hypoxemia he will be hospitalized for further care and evaluation. I did give him Decadron IV. I did discuss case with the hospitalist and wrapper caser. Impression & Plan Multifocal pneumonia, Hypoxemia, Pneumonia due to 2019 novel coronavirus, Thrombocytopenia Discharge Plan Visit Data Chief Complaint: Illness Stated Complaint: COVID ED Provider: Sean Oconnell Discharge Problem: Multifocal pneumonia, Hypoxemia, Pneumonia due to 2019 novel coronavirus, Thrombocytopenia Patient Disposition: Being Evaluated by Hospitalist Forms Stand Alone Forms: My [facility] Prescriptions Prescriptions: No Action fluticasone propion-salmeterol [Advair Diskus] 250-50 mcg/dose blister with device 1 inh INHALATION BID RF: 0 aspirin 81 mg Tablet,Delayed Release (Dr/Ec) 81 mg PO DAILY RF: 0 simvastatin 40 mg tablet 40 mg PO DAILY RF: 0 benzonatate 100 mg capsule 100 mg PO TID PRN (Reason: cough) Qty: 15 RF: 0 albuterol sulfate 90 mcg/actuation HFA aerosol inhaler 2 puffs INH 6XD PRN (Reason: shortness of breath or wheezing) Qty: 6.7 RF: 0 Referrals Referrals: Vasiliy Gutierrez MD [Primary Care Provider] -
[2021-08-01] MEDS ORDERED: CASIRIVIMAB/IMDEVIMAB 1,200 MG in 0.9 % SODIUM CHLORIDE 100 ML IV ONE (16:13)
[2021-08-01] MEDS ORDERED: SODIUM CHLORIDE 0.9% 10ML FLUSH IV ONE (16:28)
[2021-08-01] MEDS ORDERED: 0.2 MICRON FILTER SET 1 EA IV ONE (16:28)
--- NOTE | 2021-08-01 16:32 | XRay Report ---
XR chest 2V PA/lateral CLINICAL HISTORY: Covid positive. Difficulty breathing. History of cough. COMPARISON STUDY: 07/28/2021 TECHNIQUE: 2 views of the chest FINDINGS: Frontal and lateral radiographs of the chest demonstrate the cardiomediastinal silhouette to be withi n normal limits. Compared to the previous examination, there are now patchy interstitial and alveolar opacities present bilaterally. The findings are most characteristic of a viral type pneumonitis and early Covid 19 pneumonia. There is no evidence for effusion bilaterally. There is no evidence for vas cular congestion. There is no acute osseous pathology. IMPRESSION: Compared to the previous examination, there are now patchy interstitial and alveolar opac ities bilaterally characteristic of a viral type pneumonitis and early Covid 19 pneumonia. ACT 112: Negative or not required by law. Electronically signed by: Magan Grant M.D. 08/01/2021 4:31 PM
[2021-08-01] MEDS ORDERED: dexAMETHasone**PF** 10 MG/ML VIAL IV ONE (19:28)
[2021-08-01 19:34] LABS: Hematocrit (blood only) 51.1 % (42-52); Hemoglobin 17.9 g/dL (14.0-18.0); Mean Corpuscular Hemoglobin 32.1 pg (25-34); Mean Corpuscular Volume 91.6 fL (80-100); RDW Standard Deviation 43.8 fL (36.4-46.3); Red Blood Count 5.58 M/uL (4.7-6.1); White Blood Count 3.62 K/uL (4.8-10.8)
[2021-08-01 19:53] LABS: Albumin Level 2.9 gm/dl (3.4-5.0); BUN Creatinine Ratio 21.3 (10-20); C Reactive Protein 2.84 mg/dl (0-0.29); Calcium 8.3 mg/dl (8.5-10.1); Creatinine Clr Calc Pharmacy 62.5 ml/min; Est GFR (African American) 72.6 ml/min; Est GFR (Non-African American) 62.6 ml/min; Potassium 3.9 mmol/L (3.5-5.1)
[2021-08-01 19:56] LABS: Albumin Globulin Ratio 0.7 (0.9-2); Bilirubin,Total 0.5 mg/dl (0.2-1); Globulin 3.9 gm/dl (2.5-4.0); Total Protein 6.8 gm/dl (6.4-8.2)
[2021-08-01] MEDS ORDERED: PROMETHAZINE 6.25 MG/50.25 ML BAG IV STA (20:32)
[2021-08-01 20:55] LABS: Mean Platelet Volume 11.5 fL (7.4-10.4); Platelet Count 68 K/uL (130-400)
[2021-08-01 20:56] LABS: Basophils # (auto) 0.01 K/uL (0-0.2); Basophils % (auto) 0.3 %; Immature Granulocytes # (auto) 0.01 K/uL (0.00-0.02); Immature Granulocytes % (auto) 0.3 %; Lymphocytes % (auto) 30.4 %; Monocytes # (auto) 0.38 K/uL (0.11-0.59); Monocytes % (auto) 10.5 %; Neutrophils # (auto) 2.12 K/uL (1.4-6.5); Neutrophils % (auto) 58.5 %; Platelet Estimate Decreased (Normal)
[2021-08-01] MEDS ORDERED: REMDESIVIR 200 MG in SODIUM CHLORIDE 0.9% 210 ML IV STA (21:14)
--- NOTE | 2021-08-01 21:15 | History & Physical Report ---
Date of Service August 01, 2021 Assessment & Plan (1) Pneumonia due to 2019 novel coronavirus: Plan: Multifocal COVID-19 pneumonia/asthma with hypoxia- Dexamethasone 6 mg IV every morning Duonebs every 4 hours while awake and every 2 hours when necessary. Remdesivir IV per protocol Guaifenesin extended release 12 mg p.o. twice daily Vitamin D 1000 international units p.o. daily Zinc sulfate 220 mg p.o. daily Azithromycin 5 mg IV daily Nasal cannula oxygen, titrate to keep pulse ox 92% (2) Hypoxemia: Plan: See above (3) Multifocal pneumonia: Plan: See above (4) CAD (coronary artery disease): Plan: Continue aspirin (5) Dyslipidemia: Plan: Continue simvastatin (6) Asthma: Plan: See above History of Present Illness Chief Complaint: The patient presents to the emergency department with worsening generalized weakness, chest pain, cough, fevers and chills, shortness of breath and dyspnea on exertion over the past week. He was seen at the emergency department on 07/28, was diagnosed with COVID-19 pneumonia, and has had significantly decreased oral intake since that time. Chest x-ray shows multifocal pneumonia consistent with viral pneumonia. Pulse ox on room air was 88%, which improved to 92% with 2 L nasal cannula Abnormal laboratories: Albumin 2.9, AST 83 and glucose 119. Primary Care Provider: Vasiliy Gutierrez MD Allergies Allergy/AdvReac Type Severity Reaction Status Date / Time iodine Allergy Unknown Unknown Verified 08/01/21 16:52 Sulfa (Sulfonamide Allergy Unknown Unknown Verified 08/01/21 16:52 Antibiotics) Milk Containing Products AdvReac Gastrointestinal Unverified 08/01/21 16:52 Upset Home Medications Medication Instructions Recorded Confirmed Type simvastatin 40 mg tablet 40 mg PO DAILY 02/19/19 08/01/21 History aspirin 81 mg tablet,delayed 81 mg PO DAILY 08/01/19 08/01/21 History release fluticasone 250 mcg-salmeterol 50 1 inh INHALATION BID 08/01/19 08/01/21 History mcg/dose blistr powdr for inhalation (Advair Diskus) albuterol sulfate 90 mcg/actuation 2 puffs INH 6XD PRN #6.7 gm 07/28/21 08/01/21 Rx aerosol inhaler benzonatate 100 mg capsule 100 mg PO TID PRN #15 cap 07/28/21 08/01/21 Rx Past Med/Surg History Medical History (Updated 08/02/21 @ 00:03 by Renaldo Beard MD) Asthma CAD (coronary artery disease) Contusion of elbow, right Depression Diverticulitis DVT (deep venous thrombosis) Dyslipidemia NSTEMI (non-ST elevated myocardial infarction) Prostate cancer Renal cyst, left Surgical History History of carpal tunnel release Family History Other Family history non-contributory Social History Smoking Status: Never smoker Preferred Language: Vietnamese marital status: Single Current Living Situation: Alone current occupational status: employed Feels Safe at Home: Yes Review of Systems Review of Systems: The patient denies chest pain, palpitations, lower extremity swelling, sore throat, fevers, chills, sweats, nausea, vomiting, diarrhea , constipation, blood in urine or stool, dysuria, urinary frequency or urgency, lightheadedness, dizziness, headache, memory loss, loss of consciousness, rash, abnormal bruising or bleeding, focal weakness, numbness or tingling in arms or legs, back or neck pain, or night sweats. The review of systems is otherwise negative other than for that already noted above, and at least 10 systems have been reviewed. Physical Exam Physical Exam: The patient is awake, alert and oriented 3, looks very fatigued, normocephalic and atraumatic, lying in bed and in no acute distress. HEENT--PERRL, EOMI, mucous membranes and oropharynx dry. Neck--supple. No JVD. No bruits. Thyroid normal, trachea midline, no adenopathy. Heart--normal S1 and S2. No murmurs, rubs or gallops. Lungs--coarse breath sounds bilaterally. No respiratory distress, no accessory muscle use. Abdomen--normal bowel sounds and soft. Nontender. Nondistended, no hernias or masses, no organomegaly. Extremities--no cyanosis or clubbing. No edema. Dermatologic--normal skin turgor, normal color, no abnormal lymph nodes, no rash. Neurologic--cranial nerves II through XII grossly intact. Rheumatologic--normal range of motion. Psychiatric--normal affect. Results & Data Results & Data ([facility]) Vital Signs (Past 12 Hours) Vital Signs Temp Pulse Resp BP Pulse Ox 08/01/21 19:36 94 H 20 90 08/01/21 19:20 88 L 08/01/21 14:34 36.8 C 98 H 20 154/73 H 90 Laboratory Results Laboratory Results WBC 3.62 K/uL (4.8-10.8) L 08/01/21 19:10 RBC 5.58 M/uL (4.7-6.1) 08/01/21 19:10 Hgb 17.9 g/dL (14.0-18.0) 08/01/21 19:10 Hct 51.1 % (42-52) 08/01/21 19:10 MCV 91.6 fL (80-100) 08/01/21 19:10 MCH 32.1 pg (25-34) 08/01/21 19:10 MCHC 35.0 g/dL (32-36) 08/01/21 19:10 RDW Std Deviation 43.8 fL (36.4-46.3) 08/01/21 19:10 RDW Coeff of Charity 13.0 % (11.5-14.5) 08/01/21 19:10 Plt Count 68 K/uL (130-400) L 08/01/21 19:10 MPV 11.5 fL (7.4-10.4) H 08/01/21 19:10 Immature Gran % (Auto) 0.3 % 08/01/21 19:10 Neut % (Auto) 58.5 % 08/01/21 19:10 Lymph % (Auto) 30.4 % 08/01/21 19:10 [place] % (Auto) 10.5 % 08/01/21 19:10 Eos % (Auto) 0.0 % 08/01/21 19:10 Baso % (Auto) 0.3 % 08/01/21 19:10 Neut # (Auto) 2.12 K/uL (1.4-6.5) 08/01/21 19:10 Lymph # (Auto) 1.10 K/uL (1.2-3.4) L 08/01/21 19:10 [place] # (Auto) 0.38 K/uL (0.11-0.59) 08/01/21 19:10 Eos # (Auto) 0.00 K/uL (0-0.5) 08/01/21 19:10 Baso # (Auto) 0.01 K/uL (0-0.2) 08/01/21 19:10 Immature Gran # (Auto) 0.01 K/uL (0.00-0.02) 08/01/21 19:10 Platelet Estimate Decreased (Normal) L 08/01/21 19:10 Sodium 140 mmol/L (136-145) 08/01/21 19:10 Potassium 3.9 mmol/L (3.5-5.1) 08/01/21 19:10 Chloride 108 mmol/L (98-107) H 08/01/21 19:10 Carbon Dioxide 22 mmol/L (21-32) 08/01/21 19:10 Anion Gap 9.0 (3-11) 08/01/21 19:10 BUN 26 mg/dl (7-18) H 08/01/21 19:10 Creatinine 1.20 mg/dl (0.6-1.4) 08/01/21 19:10 Est Cr Clr Drug Dosing 62.5 ml/min 08/01/21 19:10 Est GFR ( Amer) 72.6 ml/min 08/01/21 19:10 Est GFR (Non-Af Amer) 62.6 ml/min 08/01/21 19:10 BUN/Creatinine Ratio 21.3 (10-20) H 08/01/21 19:10 Glucose 119 mg/dl (70-99) H 08/01/21 19:10 Calcium 8.3 mg/dl (8.5-10.1) L 08/01/21 19:10 Total Bilirubin 0.5 mg/dl (0.2-1) 08/01/21 19:10 AST 83 U/L (15-37) H 08/01/21 19:10 ALT 50 (12-78) 08/01/21 19:10 Alkaline Phosphatase 56 U/L (45-117) 08/01/21 19:10 C-Reactive Protein 2.84 mg/dl (0-0.29) H 08/01/21 19:10 Total Protein 6.8 gm/dl (6.4-8.2) 08/01/21 19:10 Albumin 2.9 gm/dl (3.4-5.0) L 08/01/21 19:10 Globulin 3.9 gm/dl (2.5-4.0) 08/01/21 19:10 Albumin/Globulin Ratio 0.7 (0.9-2) L 08/01/21 19:10 Impressions Chest X-Ray 08/01/21 15:45 XR chest 2V PA/lateral CLINICAL HISTORY: Covid positive. Difficulty breathing. History of cough. COMPARISON STUDY: 07/28/2021 TECHNIQUE: 2 views of the chest FINDINGS: Frontal and lateral radiographs of the chest demonstrate the cardiomediastinal silhouette to be within normal limits. Compared to the previous examination, there are now patchy interstitial and alveolar opacities present bilaterally. The findings are most characteristic of a viral type pneumonitis and early Covid 19 pneumonia. There is no evidence for effusion bilaterally. There is no evidence for vascular congestion. There is no acute osseous pathology. IMPRESSION: Compared to the previous examination, there are now patchy interstitial and alveolar opacities bilaterally characteristic of a viral type pneumonitis and early Covid 19 pneumonia. ACT 112: Negative or not required by law. Electronically signed by: Magan Grant M.D. 08/01/2021 4:31 PM Code Status & VTE Plan Code Status Full code VTE Prophylaxis Plan VTE Prophylaxis will be ordered: Yes PG Care Time/CCT Total # of Minutes Spent Total Time Spent with Patient: Total time spent is greater than 50% in coordination of care (as documented) at patient's floor/unit and/or counseling patient: Coding Level of Care Code 89926 Initial Inpt Care Lvl 3 Diagnoses Pneumonia due to 2019 novel coronavirus U07.1; J12.82 Hypoxemia R09.02 Multifocal pneumonia J18.9 CAD (coronary artery disease) I25.10 Dyslipidemia E78.5 Asthma J45.909
[2021-08-01] MEDS ORDERED: BENZONATATE 100 MG CAPSULE PO PRN (22:58)
[2021-08-02] MEDS ORDERED: NSS + 20MEQ KCL 20 MEQ/1,000 ML BAG IV SCH (00:30)
[2021-08-02] MEDS: SODIUM CHLORIDE 0.9% 10ML FLUSH IV SCH ×2 (01:20→21:00)
[2021-08-02] MEDS: AZITHROMYCIN 500 MG in DEXTROSE 5% 250 ML IV SCH (01:25)
[2021-08-02] MEDS ORDERED: ALBUT/IPRATROP 3MG/0.5MG NEB 3 ML VIAL NEB SCH (07:00)
[2021-08-02] MEDS: dexAMETHasone 6 MG in SYRINGE 0 ML IV SCH (07:49)
[2021-08-02] MEDS: ZINC SULFATE 220 MG CAPSULE PO SCH (07:51)
[2021-08-02] MEDS: SIMVASTATIN 40 MG TAB PO SCH (07:51)
[2021-08-02] MEDS: guaiFENesin 600 MG TABCR PO SCH ×2 (07:51→20:58)
[2021-08-02] MEDS: ASPIRIN 81 MG ECTAB PO SCH (07:51)
[2021-08-02] MEDS: CHOLECALCIFEROL 1,000 UNITS 25 MCG TAB PO SCH (07:51)
[2021-08-02 08:12] LABS: Appearance Urine Clear (Clear); Bacteria Urine Automated Negative (Negative); Bilirubin Urine Negative (Negative); Blood Urine Negative (Negative); Color Urine Dark Yellow; Epithelial Cell Urine Auto 20-30 /lpf (0-5); Glucose Urine UA Negative (Negative); Ketones Urine 1+ (Negative); Leukocyte Esterase Urine Negative (Negative); Nitrite Urine Negative (Negative); Protein Urine Trace (Negative); RBC Urine Automated 0-4 /hpf (0-4); Specific Gravity Urine 1.026 (1.000-1.030); Urobilinogen Urine Negative (Negative)
[2021-08-02] MEDS ORDERED: ALBUT/IPRATROP 3MG/0.5MG NEB 3 ML VIAL NEB PRN (08:33)
[2021-08-02] MEDS ORDERED: AZITHROMYCIN 500 MG in DEXTROSE 5% 250 ML IV SCH (09:00)
[2021-08-02] MEDS ORDERED: ENOXAPARIN INJ 40 MG/0.4 ML SYR SQ SCH (09:00)
--- NOTE | 2021-08-02 10:30 | Electrocardiogram Report ---
Test Reason : Blood Pressure : / mmHG Vent. Rate : 102 BPM Atrial Rate : 102 BPM P-R Int : 150 ms QRS Dur : 086 ms QT Int : 338 ms P-R-T Axes : 036 003 027 degrees QTc Int : 440 ms Sinus tachycardia Inferior infarct , age undetermined Abnormal ECG When compared with ECG of 28-JUL-2021 22:04, Inferior infarct is now Present (borderline on previous EKG) QT has shortened Confirmed by Robert Hannon ([id number]) on 08/02/2021 10:30:09 AM Referred By: REFERRED SELF Confirmed By:Robert Hannon
[2021-08-02 10:32] LABS: Hematocrit (blood only) 49.2 % (42-52); Hemoglobin 16.8 g/dL (14.0-18.0); Mean Corpuscular Hemoglobin 31.6 pg (25-34); Mean Corpuscular Hgb Conc 34.1 g/dL (32-36); Mean Corpuscular Volume 92.7 fL (80-100); RDW Coefficient of Variation 13.2 % (11.5-14.5); Red Blood Count 5.31 M/uL (4.7-6.1); White Blood Count 2.01 K/uL (4.8-10.8)
[2021-08-02 10:35] LABS: Mean Platelet Volume 11.2 fL (7.4-10.4); Platelet Count 60 K/uL (130-400)
[2021-08-02 11:02] LABS: BUN Creatinine Ratio 21.9 (10-20); Calcium 8.5 mg/dl (8.5-10.1); Creatinine Clr Calc Pharmacy 67.6 ml/min; Est GFR (African American) 79.8 ml/min; Est GFR (Non-African American) 68.8 ml/min; Potassium 4.3 mmol/L (3.5-5.1)
[2021-08-02 11:05] LABS: Lymphocytes # (auto) 0.41 K/uL (1.2-3.4); Lymphocytes % (auto) 20.4 %; Neutrophils % (auto) 74.6 %
[2021-08-02] MEDS: REMDESIVIR 100 MG in SODIUM CHLORIDE 0.9% 230 ML IV SCH (19:38)
--- NOTE | 2021-08-02 19:54 | Hospitalist Progress Note ---
Date of Service August 02, 2021 Assessment & Plan (1) Pneumonia due to 2019 novel coronavirus: Plan: Moderate disease. Day #2 of dexamethasone 6mg IV. Day #2 of 5 of Remdesivir. Day #1 of zithromax. Proning discussed. Aggressive pulmonary toilet. CRP 2.8 & o2 requirements are low - baricitinib not indicated. (2) Acute respiratory failure with hypoxia: Plan: 2nd to #1. no evidence of complicating acute CHF. (3) CAD (coronary artery disease): Plan: Continue aspirin Continue statin no ischemic symptoms at this time (4) Dyslipidemia: Plan: Continue simvastatin (5) Asthma: Plan: continue inhalers albuterol prn (6) DVT prophylaxis: Plan: lovenox 40mg BID Plan: pt's daughter updated by phone this evening Admission and Anticipated Discharge Date Admission Date: August 01, 2021 Subjective patient states he 'feels better than when I came in" can take deeper breaths energy is improved - although still tired ate today for the first time in several days we discussed proning - he will attempt such denies fevers/chills/N/V/diarrhea Review of Systems Review of Systems: CV - no cp, no orthopnea pulm - cough, mainly dry; mild [place] GI - no abd pain Physical Exam Physical Exam: gen - NAD, nontoxic, pleasant mouth - MMM neck - no JVD heart - RRR, s1 s2, no murmur lungs - bibasilar rales, no wheeze, no increased work of breathing abd - soft NT ND BS+ ext - no edema, pulses 2+ b/l Results & Data Results & Data ([facility]) Vital Signs (Past 12 Hours) Vital Signs Temp Pulse Pulse Resp BP Pulse Ox 08/02/21 19:00 36.5 C 81 20 118/48 L 89 L 08/02/21 16:10 36.7 C 81 16 106/68 88 L 08/02/21 15:27 86 08/02/21 11:27 36.8 C 81 20 126/78 92 08/02/21 08:15 36.6 C 76 19 145/84 H 90 08/02/21 08:00 80 08/02/21 07:59 76 18 91 Laboratory Results low WBC platelets 60 Cr stable AST minimally elevated PG Care Time/CCT Total # of Minutes Spent Total Time Spent with Patient: Total time spent is greater than 50% in coordination of care (as documented) at patient's floor/unit and/or counseling patient: Coding Level of Care Code 95319 Subseq Hosp Care Lvl 2 Diagnoses Pneumonia due to 2019 novel coronavirus U07.1; J12.82 CAD (coronary artery disease) I25.10 Dyslipidemia E78.5 Asthma J45.909 Acute respiratory failure with hypoxia J96.01 DVT prophylaxis Z29.9
[2021-08-02] MEDS: ENOXAPARIN INJ 40 MG/0.4 ML SYR SQ SCH (20:58)
[2021-08-03] MEDS: AZITHROMYCIN 500 MG in DEXTROSE 5% 250 ML IV SCH (00:37)
[2021-08-03 06:54] LABS: Hematocrit (blood only) 48.1 % (42-52); Hemoglobin 16.3 g/dL (14.0-18.0); Mean Corpuscular Hgb Conc 33.9 g/dL (32-36); Mean Corpuscular Volume 91.4 fL (80-100); RDW Coefficient of Variation 12.9 % (11.5-14.5); RDW Standard Deviation 43.2 fL (36.4-46.3); Red Blood Count 5.26 M/uL (4.7-6.1); White Blood Count 6.94 K/uL (4.8-10.8)
[2021-08-03 06:56] LABS: Mean Platelet Volume 11.6 fL (7.4-10.4); Platelet Count 75 K/uL (130-400)
[2021-08-03 07:18] LABS: Basophils # (auto) 0.01 K/uL (0-0.2); Basophils % (auto) 0.1 %; Immature Granulocytes # (auto) 0.02 K/uL (0.00-0.02); Immature Granulocytes % (auto) 0.3 %; Lymphocytes # (auto) 0.86 K/uL (1.2-3.4); Lymphocytes % (auto) 12.4 %; Monocytes # (auto) 0.64 K/uL (0.11-0.59); Monocytes % (auto) 9.2 %; Neutrophils # (auto) 5.41 K/uL (1.4-6.5)
[2021-08-03 07:20] LABS: BUN Creatinine Ratio 23.2 (10-20); Est GFR (African American) 90.5 ml/min; Est GFR (Non-African American) 78.1 ml/min; Potassium 4.5 mmol/L (3.5-5.1)
[2021-08-03] MEDS: dexAMETHasone 6 MG in SYRINGE 0 ML IV SCH (09:07)
[2021-08-03] MEDS: SIMVASTATIN 40 MG TAB PO SCH (09:07)
[2021-08-03] MEDS: ENOXAPARIN INJ 40 MG/0.4 ML SYR SQ SCH ×2 (09:07→19:53)
[2021-08-03] MEDS: guaiFENesin 600 MG TABCR PO SCH ×2 (09:07→19:53)
[2021-08-03] MEDS: ASPIRIN 81 MG ECTAB PO SCH (09:07)
[2021-08-03] MEDS: ZINC SULFATE 220 MG CAPSULE PO SCH (09:07)
[2021-08-03] MEDS: CHOLECALCIFEROL 1,000 UNITS 25 MCG TAB PO SCH (09:08)
[2021-08-03] MEDS: REMDESIVIR 100 MG in SODIUM CHLORIDE 0.9% 230 ML IV SCH (19:52)
[2021-08-03] MEDS: SODIUM CHLORIDE 0.9% 10ML FLUSH IV SCH (21:12)
--- NOTE | 2021-08-03 22:51 | Hospitalist Progress Note ---
Date of Service August 03, 2021 Assessment & Plan (1) Pneumonia due to 2019 novel coronavirus: Plan: Moderate disease. Improving. Stable O2 requirements. Day #3 of dexamethasone 6mg IV. Day #3 of 5 of Remdesivir. Day #2 of zithromax. Aggressive pulmonary toilet. Cont to prone. CRP 2.8 & o2 requirements are low - baricitinib not indicated. (2) Acute respiratory failure with hypoxia: Plan: 2nd to #1. no evidence of complicating acute CHF. slowly improving. (3) CAD (coronary artery disease): Plan: Continue aspirin Continue statin no ischemic symptoms at this time (4) Dyslipidemia: Plan: Continue simvastatin (5) Asthma: Plan: continue inhalers albuterol prn (6) DVT prophylaxis: Plan: lovenox 40mg BID (7) Thrombocytopenia: Plan: 2nd to COVID infection - starting to trend up cbc am (8) Elevated AST (SGOT): Plan: mild elevation but improving 2nd to COVID infection cont to trend especially given his statin and concurrent Remdesivir usage Plan: pt's daughter updated by phone yesterday progressing Admission and Anticipated Discharge Date Admission Date: August 01, 2021 Subjective pt continues to feel better appetite back to normal cough improved can take deeper breaths less dyspnea just overall feeling better with improved energy I informed him I spoke with his daughter and updated her he was every emotional about this, hadn't spoken with her in several months tele overnight wnl Review of Systems Review of Systems: gen - no fevers/chills pulm- no sputum cv - no orthopnea, no chest pain abd - moving bowels, no N/V Physical Exam Physical Exam: gen - NAD, nontoxic, pleasant - looks better today mouth - MMM neck - no JVD heart - RRR, s1 s2, no murmur lungs - bibasilar rales improved; no wheeze, no increased work of breathing abd - soft NT ND BS+ ext - no edema, pulses 2+ b/l Results & Data Results & Data ([facility]) Vital Signs (Past 12 Hours) Vital Signs Temp Pulse Pulse Resp BP Pulse Ox 08/03/21 18:34 36.6 C 79 16 114/73 93 08/03/21 16:37 82 08/03/21 11:49 36.7 C 78 16 102/65 94 Laboratory Results Laboratory Results - last 24 hr 08/03/21 08/03/21 08/03/21 06:03 06:03 06:03 WBC 6.94 RBC 5.26 Hgb 16.3 Hct 48.1 MCV 91.4 MCH 31.0 MCHC 33.9 RDW Std Deviation 43.2 RDW Coeff of Charity 12.9 Plt Count 75 L MPV 11.6 H Immature Gran % (Auto) 0.3 Neut % (Auto) 78.0 Lymph % (Auto) 12.4 Taliaferro % (Auto) 9.2 Eos % (Auto) 0.0 Baso % (Auto) 0.1 Neut # (Auto) 5.41 Lymph # (Auto) 0.86 L Taliaferro # (Auto) 0.64 H Eos # (Auto) 0.00 Baso # (Auto) 0.01 Immature Gran # (Auto) 0.02 Sodium 144 Potassium 4.5 Chloride 111 H Carbon Dioxide 27 Anion Gap 6.0 BUN 23 H Creatinine 1.00 Est Cr Clr Drug Dosing 75.0 Est GFR ( Amer) 90.5 Est GFR (Non-Af Amer) 78.1 BUN/Creatinine Ratio 23.2 H Glucose 135 H POC Glucose Estimat Average Glucose Pending Hemoglobin A1c Pending Calcium 8.0 L AST 51 H ALT 42 08/03/21 08/03/21 08/03/21 07:45 11:40 20:54 WBC RBC Hgb Hct MCV MCH MCHC RDW Std Deviation RDW Coeff of Charity Plt Count MPV Immature Gran % (Auto) Neut % (Auto) Lymph % (Auto) Taliaferro % (Auto) Eos % (Auto) Baso % (Auto) Neut # (Auto) Lymph # (Auto) Taliaferro # (Auto) Eos # (Auto) Baso # (Auto) Immature Gran # (Auto) Sodium Potassium Chloride Carbon Dioxide Anion Gap BUN Creatinine Est Cr Clr Drug Dosing Est GFR ( Amer) Est GFR (Non-Af Amer) BUN/Creatinine Ratio Glucose POC Glucose 111 H 124 H 175 H Estimat Average Glucose Hemoglobin A1c Calcium AST ALT PG Care Time/CCT Total # of Minutes Spent Total Time Spent with Patient: Total time spent is greater than 50% in coordination of care (as documented) at patient's floor/unit and/or counseling patient: Coding Level of Care Code 90866 Subseq Hosp Care Lvl 2 Diagnoses Pneumonia due to 2019 novel coronavirus U07.1; J12.82 Acute respiratory failure with hypoxia J96.01 CAD (coronary artery disease) I25.10 Dyslipidemia E78.5 Asthma J45.909 DVT prophylaxis Z29.9 Thrombocytopenia D69.6 Elevated AST (SGOT) R74.01
[2021-08-04] MEDS: AZITHROMYCIN 500 MG in DEXTROSE 5% 250 ML IV SCH (01:50)
[2021-08-04 07:23] LABS: BUN Creatinine Ratio 27.3 (10-20); Calcium 8.2 mg/dl (8.5-10.1); Creatinine Clr Calc Pharmacy 101.5 ml/min; Est GFR (African American) 107.9 ml/min; Est GFR (Non-African American) 93.1 ml/min; Potassium 3.8 mmol/L (3.5-5.1)
[2021-08-04 07:33] LABS: Estimated Average Glucose 123 mg/dl; Hemoglobin A1C 5.9 % (4.5-5.6)
[2021-08-04] MEDS: ZINC SULFATE 220 MG CAPSULE PO SCH (07:48)
[2021-08-04] MEDS: SIMVASTATIN 40 MG TAB PO SCH (07:48)
[2021-08-04] MEDS: ASPIRIN 81 MG ECTAB PO SCH (07:49)
[2021-08-04] MEDS: CHOLECALCIFEROL 1,000 UNITS 25 MCG TAB PO SCH (07:49)
[2021-08-04] MEDS: guaiFENesin 600 MG TABCR PO SCH ×2 (07:50→20:18)
[2021-08-04] MEDS: ENOXAPARIN INJ 40 MG/0.4 ML SYR SQ SCH ×2 (07:50→20:18)
[2021-08-04] MEDS: dexAMETHasone 6 MG in SYRINGE 0 ML IV SCH (07:50)
[2021-08-04] MEDS ORDERED: chlorproMAZINE HCL 25 MG TAB PO ONE (08:00)
[2021-08-04] MEDS ORDERED: FAMOTIDINE 20 MG in SYRINGE 3 ML IV ONE (08:00)
[2021-08-04] MEDS ORDERED: SODIUM CHLORIDE 0.65% NA SOLN 45 ML (OCEAN) PRN (10:09)
--- NOTE | 2021-08-04 10:13 | Hospitalist Progress Note ---
Date of Service August 04, 2021 Assessment & Plan (1) Pneumonia due to 2019 novel coronavirus: Plan: Moderate disease. Improving overall. Stable O2 requirements. Day #4 of dexamethasone 6mg IV. Day #4 of 5 of Remdesivir. Day #3 of zithromax, but change to doxy - this will give better sinus coverage than z-pack if there is brewing acute sinusitis. Aggressive pulmonary toilet. Cont to prone. CRP 2.8 & o2 requirements low - baricitinib not indicated. (2) Acute respiratory failure with hypoxia: Plan: 2nd to #1. no evidence of complicating acute CHF. slowly improving. (3) CAD (coronary artery disease): Plan: Continue aspirin Continue statin no ischemic symptoms at this time (4) Dyslipidemia: Plan: Continue simvastatin (5) Asthma: Plan: continue inhalers albuterol prn (6) DVT prophylaxis: Plan: lovenox 40mg BID (7) Thrombocytopenia: Plan: 2nd to COVID infection improving albeit slowly cbc am (8) Elevated AST (SGOT): Plan: mild elevation but improving 2nd to COVID infection cont to trend especially given his statin and concurrent Remdesivir usage (9) Prediabetes: Plan: a1c 5.9% will d/w patient diet control w/ T2DM diet (10) Hiccups: Plan: 2nd GERD? 2nd COVID itself? diaphragm irritation from lung issues? thorazine q6h prn carafate 1gm QID pepcid 20mg IV x1 now then protonix 40mg po daily starting in am (11) Sinusitis: Plan: could have early acute sinusitis given the bloody, mucoid discharge from nose along with sinus pressure change zithromax to doxy saline spray Plan: pt's daughter updated by phone 2 days ago tried to call her again today - left message progressing Admission and Anticipated Discharge Date Admission Date: August 01, 2021 Subjective patient with severe hiccups today received thorazine x 1 - this did help, but then hiccups returned does not suffer from reflux minimal burping no nausea or emesis hiccups are disabling to him he also mentions he is blowing bloody secretions from his nose sinuses feel "full" no true nosebleeding cough/dyspnea much improved appetite has normalized he finishes by saying "I feel SO much better" than a few days prior Review of Systems Review of Systems: gen - no fevers/chills CV - no cp, orthopnea HENT - no ear pain, mild sinus pressure Pulm - no hemoptysis Physical Exam Physical Exam: gen - hiccuping, otherwise NAD mouth - MMM nose - congested; he blew his nose and bloody mucoid discharge was obtained neck - no JVD heart - RRR, s1 s2, no murmur lungs - bibasilar rales unchanged abd - soft NT ND BS+ ext - no edema, pulses 2+ b/l Results & Data Results & Data ([facility]) Vital Signs (Past 12 Hours) Vital Signs Temp Pulse Pulse Resp BP Pulse Ox Pulse Ox 08/04/21 07:05 81 08/04/21 06:37 36.6 C 66 18 106/62 94 08/04/21 05:29 76 96 08/04/21 04:00 36.5 C 67 20 101/65 93 08/03/21 23:24 36.5 C 68 20 107/67 91 Laboratory Results Laboratory Results - last 24 hr 08/03/21 08/03/21 08/03/21 06:03 11:40 20:54 Sodium Potassium Chloride Carbon Dioxide Anion Gap BUN Creatinine Est Cr Clr Drug Dosing Est GFR ( Amer) Est GFR (Non-Af Amer) BUN/Creatinine Ratio Glucose POC Glucose 124 H 175 H Estimat Average Glucose 123 Hemoglobin A1c 5.9 H Calcium AST ALT 08/04/21 05:57 Sodium 140 Potassium 3.8 D Chloride 108 H Carbon Dioxide 25 Anion Gap 7.0 BUN 22 H Creatinine 0.80 Est Cr Clr Drug Dosing 101.5 Est GFR ( Amer) 107.9 Est GFR (Non-Af Amer) 93.1 BUN/Creatinine Ratio 27.3 H Glucose 125 H POC Glucose Estimat Average Glucose Hemoglobin A1c Calcium 8.2 L AST 39 H ALT 43 PG Care Time/CCT Total # of Minutes Spent Total Time Spent with Patient: Total time spent is greater than 50% in coordination of care (as documented) at patient's floor/unit and/or counseling patient: Coding Level of Care Code 65735 Subseq Hosp Care Lvl 3 Diagnoses Pneumonia due to 2019 novel coronavirus U07.1; J12.82 Acute respiratory failure with hypoxia J96.01 CAD (coronary artery disease) I25.10 Dyslipidemia E78.5 Asthma J45.909 DVT prophylaxis Z29.9 Thrombocytopenia D69.6 Elevated AST (SGOT) R74.01 Prediabetes R73.03 Hiccups R06.6 Sinusitis J32.9
[2021-08-04] MEDS: MUPIROCIN 2% OINT 22 GM TUBE EXT SCH ×2 (10:57→20:18)
[2021-08-04] MEDS: SUCRALFATE 1 GM/10 ML UDC PO SCH ×3 (12:00→20:25)
[2021-08-04] MEDS ORDERED: chlorproMAZINE HCL 25 MG TAB PO PRN (14:00)
[2021-08-04] MEDS: REMDESIVIR 100 MG in SODIUM CHLORIDE 0.9% 230 ML IV SCH (20:18)
[2021-08-04] MEDS: SODIUM CHLORIDE 0.9% 10ML FLUSH IV SCH (21:31)
[2021-08-05 06:04] LABS: Hematocrit (blood only) 44.9 % (42-52); Hemoglobin 15.6 g/dL (14.0-18.0); Mean Corpuscular Hemoglobin 31.5 pg (25-34); Mean Corpuscular Hgb Conc 34.7 g/dL (32-36); Mean Corpuscular Volume 90.7 fL (80-100); RDW Coefficient of Variation 12.7 % (11.5-14.5); RDW Standard Deviation 42.3 fL (36.4-46.3); Red Blood Count 4.95 M/uL (4.7-6.1); White Blood Count 7.35 K/uL (4.8-10.8)
[2021-08-05 06:38] LABS: BUN Creatinine Ratio 27.4 (10-20); Calcium 8.4 mg/dl (8.5-10.1); Creatinine Clr Calc Pharmacy 89.1 ml/min; Est GFR (African American) 101.4 ml/min; Est GFR (Non-African American) 87.5 ml/min; Potassium 4.1 mmol/L (3.5-5.1)
[2021-08-05 06:41] LABS: Mean Platelet Volume 11.8 fL (7.4-10.4); Platelet Count 90 K/uL (130-400)
[2021-08-05] MEDS: dexAMETHasone 6 MG in SYRINGE 0 ML IV SCH (08:26)
[2021-08-05] MEDS: CHOLECALCIFEROL 1,000 UNITS 25 MCG TAB PO SCH (08:27)
[2021-08-05] MEDS: SIMVASTATIN 40 MG TAB PO SCH (08:27)
[2021-08-05] MEDS: PANTOprazole 40 MG TAB PO SCH (08:27)
[2021-08-05] MEDS: ASPIRIN 81 MG ECTAB PO SCH (08:27)
[2021-08-05] MEDS: ZINC SULFATE 220 MG CAPSULE PO SCH (08:27)
[2021-08-05] MEDS: DOXYCYCLINE HYCLATE 100 MG in DEXTROSE 5% 100 ML IV SCH ×2 (08:28→20:30)
[2021-08-05] MEDS: ENOXAPARIN INJ 40 MG/0.4 ML SYR SQ SCH ×2 (08:28→20:31)
[2021-08-05] MEDS: guaiFENesin 600 MG TABCR PO SCH ×2 (08:29→20:31)
[2021-08-05] MEDS: SUCRALFATE 1 GM/10 ML UDC PO SCH ×4 (08:29→20:33)
[2021-08-05] MEDS: MUPIROCIN 2% OINT 22 GM TUBE EXT SCH ×2 (08:29→20:32)
[2021-08-05] MEDS: REMDESIVIR 100 MG in SODIUM CHLORIDE 0.9% 230 ML IV SCH (19:28)
[2021-08-05] MEDS: SODIUM CHLORIDE 0.9% 10ML FLUSH IV SCH (20:40)
--- NOTE | 2021-08-06 00:03 | Hospitalist Progress Note ---
Date of Service August 05, 2021 Assessment & Plan (1) Pneumonia due to 2019 novel coronavirus: Plan: Improving. Day #5 of dexamethasone 6mg IV. Day #5 of 5 of Remdesivir. Day #4 of antibiotics - now on doxycycline. Doxy will give better sinus coverage than z-pack if there is brewing acute sinusitis. Aggressive pulmonary toilet. Cont to prone. Wean NC O2 as tolerated. (2) Acute respiratory failure with hypoxia: Plan: 2nd to #1. no evidence of complicating acute CHF. slowly improving. (3) CAD (coronary artery disease): Plan: Continue aspirin Continue statin no ischemic symptoms at this time (4) Dyslipidemia: Plan: Continue simvastatin (5) Asthma: Plan: continue inhalers albuterol prn (6) DVT prophylaxis: Plan: lovenox 40mg BID (7) Thrombocytopenia: Plan: 2nd to COVID infection improving cbc am (8) Elevated AST (SGOT): Plan: mild elevation but improving 2nd to COVID infection repeat AST in am (9) Prediabetes: Plan: a1c 5.9% will d/w patient diet control w/ T2DM diet (10) Hiccups: Plan: 2nd GERD? 2nd COVID itself? diaphragm irritation from lung issues? either way the hiccups are resolved thorazine q6h prn if they recur carafate 1gm QID and protonix 40mg po daily if they are reflux related (11) Sinusitis: Plan: could have early acute sinusitis given the bloody, mucoid discharge from nose along with sinus pressure cont doxy BID saline spray Plan: spoke with pt's daughter over the weekend by phone left phone message for her yesterday progressing nicely Admission and Anticipated Discharge Date Admission Date: August 01, 2021 Subjective pt "feeling better" overall cough improved nasal drainage is better scant bloody discharge from nose mild [place] only - no worse than previous hiccups resolved eating well had numerous questions unrelated to his COVID I took his O2 down to 3 L NC O2 during the visit -- sats stayed low 90s tele wnl overnight Review of Systems Review of Systems: gen - no fevers or chills CV - no cp abd - no N/V/abd pain Pulm - no hemoptysis Physical Exam Physical Exam: gen - looks very good today mouth - MMM neck - no JVD heart - RRR, s1 s2, no murmur lungs - bibasilar rales mildly improved abd - soft NT ND BS+ ext - no edema, pulses 2+ b/l Results & Data Results & Data ([facility]) Vital Signs (Past 12 Hours) Vital Signs Temp Pulse Pulse Resp BP Pulse Ox 08/05/21 23:00 36.5 C 76 20 115/61 95 08/05/21 19:00 36.3 C L 87 20 135/81 92 08/05/21 15:34 66 08/05/21 14:00 36.4 C L 66 20 106/66 92 Laboratory Results Laboratory Results - last 24 hr 08/05/21 08/05/21 08/05/21 05:28 05:28 07:31 WBC 7.35 RBC 4.95 Hgb 15.6 Hct 44.9 MCV 90.7 MCH 31.5 MCHC 34.7 RDW Std Deviation 42.3 RDW Coeff of Charity 12.7 Plt Count 90 L MPV 11.8 H Sodium 141 Potassium 4.1 Chloride 109 H Carbon Dioxide 26 Anion Gap 6.0 BUN 25 H Creatinine 0.91 Est Cr Clr Drug Dosing 89.1 Est GFR ( Amer) 101.4 Est GFR (Non-Af Amer) 87.5 BUN/Creatinine Ratio 27.4 H Glucose 121 H POC Glucose 104 H Calcium 8.4 L AST 42 H ALT 49 08/05/21 08/05/21 08/05/21 11:38 16:49 20:06 WBC RBC Hgb Hct MCV MCH MCHC RDW Std Deviation RDW Coeff of Charity Plt Count MPV Sodium Potassium Chloride Carbon Dioxide Anion Gap BUN Creatinine Est Cr Clr Drug Dosing Est GFR ( Amer) Est GFR (Non-Af Amer) BUN/Creatinine Ratio Glucose POC Glucose 126 H 144 H 120 H Calcium AST ALT PG Care Time/CCT Total # of Minutes Spent Total Time Spent with Patient: Total time spent is greater than 50% in coordination of care (as documented) at patient's floor/unit and/or counseling patient: Coding Level of Care Code 96992 Subseq Hosp Care Lvl 2 Diagnoses Pneumonia due to 2019 novel coronavirus U07.1; J12.82 Acute respiratory failure with hypoxia J96.01 CAD (coronary artery disease) I25.10 Dyslipidemia E78.5 Asthma J45.909 DVT prophylaxis Z29.9 Thrombocytopenia D69.6 Elevated AST (SGOT) R74.01 Prediabetes R73.03 Hiccups R06.6 Sinusitis J32.9
[2021-08-06 06:32] LABS: Platelet Count 94 K/uL (130-400)
[2021-08-06 07:09] LABS: Platelet Estimate Decreased (Normal)
[2021-08-06 07:16] LABS: Calcium 8.4 mg/dl (8.5-10.1); Creatinine Clr Calc Pharmacy 94.6 ml/min; Est GFR (African American) 104.7 ml/min; Est GFR (Non-African American) 90.4 ml/min
[2021-08-06] MEDS ORDERED: POTASSIUM CHLORIDE CRTAB 20 MEQ TABCR PO STA (08:01)
[2021-08-06] MEDS ORDERED: FUROSEMIDE 20 MG TAB PO ONE (08:02)
[2021-08-06] MEDS: ASPIRIN 81 MG ECTAB PO SCH (08:14)
[2021-08-06] MEDS: SUCRALFATE 1 GM/10 ML UDC PO SCH ×4 (08:15→16:32)
[2021-08-06] MEDS: SIMVASTATIN 40 MG TAB PO SCH (08:15)
[2021-08-06] MEDS: ZINC SULFATE 220 MG CAPSULE PO SCH (08:15)
[2021-08-06] MEDS: guaiFENesin 600 MG TABCR PO SCH (08:15)
[2021-08-06] MEDS: ENOXAPARIN INJ 40 MG/0.4 ML SYR SQ SCH (08:16)
[2021-08-06] MEDS: CHOLECALCIFEROL 1,000 UNITS 25 MCG TAB PO SCH (08:16)
[2021-08-06] MEDS: PANTOprazole 40 MG TAB PO SCH (08:16)
[2021-08-06] MEDS: dexAMETHasone 6 MG in SYRINGE 0 ML IV SCH (08:16)
[2021-08-06] MEDS: MUPIROCIN 2% OINT 22 GM TUBE EXT SCH (08:17)
[2021-08-06] MEDS: DOXYCYCLINE HYCLATE 100 MG in DEXTROSE 5% 100 ML IV SCH (08:17)
--- NOTE | 2021-08-06 18:16 | Discharge Summary ---
Date of Service date of admission - August 01, 2021 date of discharge - August 06, 2021 Admission HPI Per Admitting Provider 66yo male presents to the emergency department with worsening generalized weakness, chest pain, cough, fevers and chills, shortness of breath and dyspnea on exertion over the past week. He was seen at the emergency department on 07/28, was diagnosed with COVID-19 pneumonia, and has had significantly decreased oral intake since that time. Chest x-ray shows multifocal pneumonia consistent with viral pneumonia. Pulse ox on room air was 88%, which improved to 92% with 2 L nasal cannula Abnormal laboratories: Albumin 2.9, AST 83 and glucose 119. Principal Diagnosis Acute hypoxic respiratory failure 2nd to COVID-19 pneumonia Discharge Exam gen - NAD, looks well, no respiratory distress mouth - MMM neck - no JVD heart - RRR, s1 s2, no murmur lungs - bibasilar rales mildly improved from prior exams; good airation; no wheezes abd - soft NT ND BS+ ext - no edema, pulses 2+ b/l Discharge Data Allergies Allergy/AdvReac Type Severity Reaction Status Date / Time iodine Allergy Unknown Unknown Verified 08/01/21 16:52 Sulfa (Sulfonamide Allergy Unknown Unknown Verified 08/01/21 16:52 Antibiotics) lactose AdvReac Gastrointestinal Verified 08/06/21 10:16 Upset Procedures Performed ambulatory 2-step oxygen test - passed, no need for home O2 Ordered Studies Chest X-Ray 08/01/21 15:45 XR chest 2V PA/lateral CLINICAL HISTORY: Covid positive. Difficulty breathing. History of cough. COMPARISON STUDY: 07/28/2021 TECHNIQUE: 2 views of the chest FINDINGS: Frontal and lateral radiographs of the chest demonstrate the cardiomediastinal silhouette to be within normal limits. Compared to the previous examination, there are now patchy interstitial and alveolar opacities present bilaterally. The findings are most characteristic of a viral type pneumonitis and early Covid 19 pneumonia. There is no evidence for effusion bilaterally. There is no evidence for vascular congestion. There is no acute osseous pathology. IMPRESSION: Compared to the previous examination, there are now patchy interstitial and alveolar opacities bilaterally characteristic of a viral type pneumonitis and early Covid 19 pneumonia. ACT 112: Negative or not required by law. Electronically signed by: Magan Grant M.D. 08/01/2021 4:31 PM Hospital Course (1) Pneumonia due to 2019 novel coronavirus: Treated with IV dexamethasone, 5-day course of Remdesivir, NC O2, and aggressive pulmonary toilet. He received antibiotics due to probable sinusitis. [place] O2 requirements were 4 L. O2 was weaned off by discharge, and he passed his ambulatory 2-step oxygen test. He will complete 4 more days of oral dexamethasone 6mg daily at home. (2) Acute respiratory failure with hypoxia: 2nd to #1. He had no evidence of complicating acute CHF or bacterial pneumonia (likely had sinusitis, however). Weaned off his oxygen by time of discharge. (3) CAD (coronary artery disease): Continue aspirin Continue statin No ischemic symptoms during the visit (4) Dyslipidemia: Continue simvastatin (5) Asthma: continue advair. albuterol prn. (6) DVT prophylaxis: lovenox 40mg BID used while hospitalized. at discharge he will take Xarelto 10mg po daily x 30 days for VTE prophylaxis at home. (7) Thrombocytopenia: 2nd to COVID infection. lowest platelet count 68, improving to 94 by time of discharge. he will need a repeat CBC at time of hospital follow-up. (8) Elevated AST (SGOT): mild elevation. range high 30s to high 90s. 2nd to COVID infection. other LFTs were wnl. he will need repeat LFTs at time of hospital follow-up. (9) Prediabetes: a1c 5.9% patient aware of diagnosis. diet control w/ T2DM diet encouraged. handouts on HbA1C, pre-DM, etc given to patient regarding the diagnosis. f/u with PCP for this. (10) Hiccups: 2nd GERD? 2nd COVID itself? diaphragm irritation from lung issues? either way the hiccups finally resolved during the stay. patient was given protonix 40mg once daily at discharge and advised to follow-up with GI. he reported to me that he had been experiencing various upper GI symptoms for several months (early satiety, bloating, etc). again f/u with [facility] post-discharge. (11) Sinusitis: likely had sinusitis. received 5+ days of antibiotics while here. Total Time Total Time Spent Total Time Spent (In Minutes): 45 Discharge Plan Discharge Items Patient Disposition: Home - Self-Care Reason For Visit: COVID-19 PNEUMONIA Discharge Diagnosis: 1. COVID-19 pneumonia - resolving 2. Low platelets - due to COVID infection - slowly improving 3. Mildly elevated liver enzymes - due to COVID infection - slowly improving Activity: As commented below Activity Comment: Gradually increase your activities over the next 1-2 weeks Sexual Activity: Wait until after follow-up appointment Exercise/Sports: Wait until after follow-up appointment Driving/Machine Use: Resume 3 days after discharge Non-emergency contact: Primary Care Provider Call non-emergency contact if: you have any medication questions, your symptoms worsen and you have a fever Follow-up/Referrals: Vasiliy Gutierrez MD [Primary Care Provider] - (see Dr Gutierrez within 1 week) Diet: Carb Consistent or DM2 Addtl Attending Provider Instructions: Mr Ann, You were admitted for COVID-19 pneumonia. You were treated with steroids, Remdesivir anti-viral treatment, oxygen, and other supportive care. Your symptoms improved over the course of your stay, and your oxygen was weaned off on 08/06/21. A walking oxygen test on 08/06/21 showed that you do NOT need oxygen at your home. In addition to your pneumonia we saw that you had mildly low platelets and mild elevation in your liver tests. These 2 abnormalities were also due to your COVID infection. Your platelet count at time of discharge is 94. Recommendations - 1. Medication for prevention of DVT blood clots and blood clots of your lungs ("PEs") - * please take Xarelto 10mg once daily for 30 days * start this medication TOMORROW, 08/07/21 * Xarelto is a blood thinner; the 10mg dose is a low-dose * take the voucher to the pharmacy to get the 30-day supply for free 2. Steroid for your pneumonia - * take dexamethasone 6mg once daily with food for 4 days; start TOMORROW, 08/07/21 3. For prevention of stomach upset from the steroids and Xarelto - * take pantoprazole 40mg once daily for 30 days 4. Continue to use your flutter valve and incentive spirometry over the next 7- 10 days. Continue to prone (belly breathing/tummy time) over the next 7-10 days. 5. OK to use [id number] mucinex up to 1200mg twice daily as needed for cough/congestion. 6. Purchase a pulse oximeter from [employer], [employer], or any other pharmacy so that you can monitor your oxygen levels on your finger at home. If your oxygen levels are consistently greater than 90% this is acceptable. If your oxygen levels are consistently LESS THAN 90% please seek medical attention. Recommend checking your oxygen levels 2-3 times each day. 7. Strongly consider getting a flu shot in about 1 month. 8. Strongly consider getting a COVID vaccine in about 3 months. 9. Since your platelets are low please do NOT take [id number] motrin, ibuprofen, alleve, naprosyn, Goodie Powders, etc. 10. You will need your liver enzymes and platelets rechecked by Dr Gutierrez at time of hospital follow-up. 11. You are about 10-11 days into your COVID illness. Since your symptoms are improving, you have had no fever, and you are >10 days out from the start of your COVID symptoms - you are unlikely to be contagious to others. With that said I would recommend that you spend the next 4-5 days at home resting and recovering. 12. See handouts on "pre-diabetes." Know that your hemoglobin a1c was 5.9%. See handout discussing the hemoglobin a1c test. An a1c of 5.9% is suggestive of pre-diabetes. Follow-up - see Dr Gutierrez within [address] [facility] if - * you experience fevers over 100.5 degrees * you have worsening shortness of breath * you have chest pains * you have bleeding from any location due to your blood thinner (see below) * any other concerns It was our pleasure to care for you at [facility]! Continue to feel better! Dr Daniels Addtl Environmental Protection Officer Provider Instructions: Anticoagulation (Blood Thinner) Medication Instructions: COVID-19 can increase the risk of blood clots. Since you have had a DVT in the past and given the increased risk of clots with COVID we are recommending low- dose anticoagulation. Your anticoagulant (blood thinner) is XARELTO 10mg once daily. * You should take your medication exactly as directed. * Never skip a dose. * Never take a double dose. If you miss a dose, take it as soon as you remember. Call your Primary Care doctor if you experience any of the following: * Swelling or Pain in your leg * Sudden, continuous pain deep in a muscle * Pain that worsens when you are active or when you stand still for a long time * Chest Pain * Sudden Shortness of Breath * Rapid or pounding heart beat * Fainting * Dizziness * Cough with blood or bloody sputum * Sweating more than normal * Bruises * Heavy or uncontrolled bleeding * Blood in your urine, stool or vomit * Black or tarry stools * Heavy nose bleeding Caring for Your Self at Home: * Avoid sitting, standing or lying down for long periods without moving your legs and feet * When traveling by car, stop to get out and move around at least once every 3 hours * On long airplane, train or bus rides, get up and move around when possible * If you can't get up, wiggle your toes and tighten your calves to keep your blood moving Pending Studies at Discharge: No Stand-Alone Forms: My [facility] [place], Smoking Cessation Medications and DC Order Prescriptions: New pantoprazole 40 mg Tablet,Delayed Release (Dr/Ec) 40 mg PO QAM Qty: 30 RF: 0 Xarelto 10 mg tablet 10 mg PO DAILY 30 Days Qty: 30 RF: 0 Continued fluticasone propion-salmeterol [Advair Diskus] 250-50 mcg/dose blister with device 1 inh INHALATION BID RF: 0 aspirin 81 mg Tablet,Delayed Release (Dr/Ec) 81 mg PO DAILY RF: 0 simvastatin 40 mg tablet 40 mg PO DAILY RF: 0 benzonatate 100 mg capsule 100 mg PO TID PRN (Reason: cough) Qty: 15 RF: 0 albuterol sulfate 90 mcg/actuation HFA aerosol inhaler 2 puffs INH 6XD PRN (Reason: shortness of breath or wheezing) Qty: 6.7 RF: 0 Discharge Orders: Discharge Order (Routine); Ordered 08/06/21 Ordered By: Duke Rosario/Other Patient Handouts: A1C, Disinfecting Your Home of COVID-19, Prediabetes, 2019-nCoV, COVID-19 Home Care, COVID-19 and the Flu What's ..., Diabetes: Meal Planning Admission Data Admit Date/Time: 08/01/21 21:14 Attending Provider: Duke Daniels Admit Provider: Renaldo Beard Primary Care Provider: Vasiliy Gutierrez Other Providers: Renaldo Beard Other Interventions: Discharge Summary Assessment (RN) Last Done: 08/06/21 17:21 Coding Level of Care Code D/C DAY MANAGEMENT >30 MINS Diagnoses Pneumonia due to 2019 novel coronavirus U07.1; J12.82 Acute respiratory failure with hypoxia J96.01 CAD (coronary artery disease) I25.10 Dyslipidemia E78.5 Asthma J45.909 DVT prophylaxis Z29.9 Thrombocytopenia D69.6 Elevated AST (SGOT) R74.01 Prediabetes R73.03 Hiccups R06.6 Sinusitis J32.9
== END 2021-08-06 18:52 | disposition home or self-care (01) | DRG 177 ==
LOC: ED 14:29 → SUATTDRO 21:14 → EDINP 21:14 → 2W 08-02 03:29